=== PATIENT | male | born 1965 | race Caucasian/White ===

== ENCOUNTER 2024-10-16 23:30 | Emergency (ER) | payer OTHER ==
--- OUTSIDE RECORDS SUMMARY | 2024-10-16 23:36 | XMS REPORT | Continuity of Care Document ---
Author Name Unknown Address [address] [facility] [address] [place] [address] [facility] Address [address] [facility] [address] [place] [address] Care Team Providers Care Command Center Analyst Name Role Phone Abigail Yung Primary Care Physician Juan Mcwilliams Attending Clinician Juan Mora Attending Clinician CEASAR Shah Attending Clinician GERTRUDE Silva Attending Clinician CEASAR Dobbs Attending Clinician Sharon Cortés MD, Diandra Attending Clinician [phone] Huyen Sue MD, Cedrick Odom Attending Clinic chelsie Arsenio Braxton MD Attending Clinician [phone] Juan Mcwilliams Admitting Clinician CEASAR Shah Admitting Clinician Sharon Sanchez MD, Ceasar Terrell Admitting Clinician [phone] Payers Payer Name Policy Type Policy Number Effective Date Expirati on Date Source [facility] [id number] 2024 00:00:00 2024 00:00:00 [facility] 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 00:00:00 [employer] Other [id number] 2024 00:00:00 Problems Condition Name Condition Details Condition Category Status Onset Date Resolution Date Last Treatment Date Treating Clinician Comments Source Morbid obesity Morbid obesity Disease Recurre nce 2023-08 00:00: 00 Lela Chau BMI 40.0-44.9, adult BMI 40.0-44.9, adult Disease Active 2023-08 00:00: 00 Lela Chau HTN (hypertens ion) HTN (hypertens ion) Disease Active 2023-08 00:00: 00 Lela Chau Diabetes mellitus, type 2 Diabetes mellitus, type 2 Disease Active 2023-08 00:00: 00 Lela Chau Closed fracture of cervical vertebra, unspecifie d cervical vertebral level, initial encounter ([facility]) Closed fracture of cervical vertebra, unspecifie d cervical vertebral level, initial encounter ([facility]) Disease Resolve d 2023-08 00:00: 00 2024-08-07 00:00:00 2024-08-07 06:44:57 Lela Chau Allergies, Adverse Reactions, Alerts Allergy Name Allergy Type Status Severity Reaction(s) Onset Date Inactive Date Treating Clinician Comments Source Acetamin ophen Allergy to substanc e Active 08-22 00:00: 00 [facility] Clindamy michelle Allergy to substanc e Active 08-22 00:00: 00 [facility] Codeine Allergy to substanc e Active 08-22 00:00: 00 [facility] Diphenhy dramine Allergy to substanc e Active 08-22 00:00: 00 [facility] Sulfa Antibiot ics Propensi ty to adverse reaction s Active 2023-08 00:00: 00 [facility] Oxycodon e-Acetam inophen Propensi ty to adverse reaction s Active 2023-08 00:00: 00 [facility] Sulfa Antibiot ics Propensi ty to adverse reaction s Active 2023-08 00:00: 00 Lela Chau Cleocin HCl Drug Active [facility] Gantrisi n Pediatri c Drug Active [facility] Banophen Drug Active [facility] Tylenol Drug Active [facility] codeine Drug Active [facility] sulfa drugs Drug Active [facility] Cleocin HCl Drug Active [facility] Gantrisi n Pediatri c Drug Active [facility] Banophen Drug Active [facility] Tylenol Drug Active [facility] codeine Drug Active [facility] sulfa drugs Drug Active [facility] Cleocin HCl Drug Active [facility] Gantrisi n Pediatri c Drug Active [facility] Banophen Drug Active [facility] Tylenol Drug Active [facility] codeine Drug Active [facility] sulfa drugs Drug Active [facility] Cleocin HCl Drug Active [facility] Gantrisi n Pediatri c Drug Active [facility] Banophen Drug Active [facility] Tylenol Drug Active [facility] codeine Drug Active [facility] sulfa drugs Drug Active [facility] Cleocin HCl Drug Active [facility] Gantrisi n Pediatri c Drug Active [facility] Banophen Drug Active [facility] Tylenol Drug Active [facility] codeine Drug Active [facility] sulfa drugs Drug Active [facility] Cleocin HCl Drug Active [facility] Gantrisi n Pediatri c Drug Active [facility] Banophen Drug Active [facility] Tylenol Drug Active [facility] codeine Drug Active [facility] sulfa drugs Drug Active [facility] Cleocin HCl Drug Active [facility] Gantrisi n Pediatri c Drug Active [facility] Banophen Drug Active [facility] Tylenol Drug Active [facility] codeine Drug Active [facility] sulfa drugs Drug Active [facility] Cleocin HCl Drug Active [facility] Gantrisi n Pediatri c Drug Active [facility] Banophen Drug Active [facility] Tylenol Drug Active [facility] codeine Drug Active [facility] sulfa drugs Drug Active [facility] Cleocin HCl Drug Active [facility] Gantrisi n Pediatri c Drug Active [facility] Banophen Drug Active [facility] Tylenol Drug Active [facility] codeine Drug Active [facility] sulfa drugs Drug Active [facility] Cleocin HCl Drug Active [facility] Gantrisi n Pediatri c Drug Active [facility] Banophen Drug Active [facility] Tylenol Drug Active [facility] codeine Drug Active [facility] sulfa drugs Drug Active [facility] Cleocin HCl Drug Active [facility] Gantrisi n Pediatri c Drug Active [facility] Banophen Drug Active [facility] Tylenol Drug Active [facility] codeine Drug Active [facility] sulfa drugs Drug Active [facility] Cleocin HCl Drug Active [facility] Gantrisi n Pediatri c Drug Active [facility] Banophen Drug Active [facility] Tylenol Drug Active [facility] codeine Drug Active [facility] sulfa drugs Drug Active [facility] Cleocin HCl Drug Active [facility] Gantrisi n Pediatri c Drug Active [facility] Banophen Drug Active [facility] Tylenol Drug Active [facility] codeine Drug Active [facility] sulfa drugs Drug Active [facility] Cleocin HCl Drug Active [facility] Gantrisi n Pediatri c Drug Active [facility] Banophen Drug Active [facility] Tylenol Drug Active [facility] codeine Drug Active [facility] sulfa drugs Drug Active [facility] Cleocin HCl Drug Active [facility] Gantrisi n Pediatri c Drug Active [facility] Banophen Drug Active [facility] Tylenol Drug Active [facility] codeine Drug Active [facility] sulfa drugs Drug Active [facility] Cleocin HCl Drug Active [facility] Gantrisi n Pediatri c Drug Active [facility] Banophen Drug Active [facility] Tylenol Drug Active [facility] codeine Drug Active [facility] sulfa drugs Drug Active [facility] Cleocin HCl Drug Active [facility] Gantrisi n Pediatri c Drug Active [facility] Banophen Drug Active [facility] Tylenol Drug Active [facility] codeine Drug Active [facility] sulfa drugs Drug Active [facility] Cleocin HCl Drug Active [facility] Gantrisi n Pediatri c Drug Active [facility] Banophen Drug Active [facility] Tylenol Drug Active [facility] codeine Drug Active [facility] sulfa drugs Drug Active [facility] Cleocin HCl Drug Active [facility] Gantrisi n Pediatri c Drug Active [facility] Banophen Drug Active [facility] Tylenol Drug Active [facility] codeine Drug Active [facility] sulfa drugs Drug Active [facility] Cleocin HCl Drug Active [facility] Gantrisi n Pediatri c Drug Active [facility] Banophen Drug Active [facility] Tylenol Drug Active [facility] codeine Drug Active [facility] sulfa drugs Drug Active [facility] Cleocin HCl Drug Active [facility] Gantrisi n Pediatri c Drug Active [facility] Banophen Drug Active [facility] Tylenol Drug Active [facility] codeine Drug Active [facility] sulfa drugs Drug Active [facility] codeine Drug Active [facility] sulfa drugs Drug Active [facility] Cleocin HCl Drug Active [facility] Cleocin HCl Drug Active [facility] Gantrisi n Pediatri c Drug Active [facility] Banophen Drug Active [facility] Tylenol Drug Active [facility] Gantrisi n Pediatri c Drug Active [facility] Banophen Drug Active [facility] codeine Drug Active [facility] Tylenol Drug Active [facility] sulfa drugs Drug Active [facility] Cleocin HCl Drug Active [facility] Gantrisi n Pediatri c Drug Active [facility] Banophen Drug Active [facility] Tylenol Drug Active [facility] codeine Drug Active [facility] sulfa drugs Drug Active [facility] Cleocin HCl Drug Active [facility] Gantrisi n Pediatri c Drug Active [facility] Banophen Drug Active [facility] Tylenol Drug Active [facility] codeine Drug Active [facility] sulfa drugs Drug Active [facility] Social History Social Habit Start Date Stop Date Quantity Comments Source [facility] Sexual orientation U T [facility] History of Social function 2024-07-31 00:00:00 2024-07-31 00:00:00 [facility] Sex 2024-07-29 18:11:16 2024-07-29 18:11:16 Male (finding) [facility] Sex assigned at 1965 00:00:00 1965 00:00:00 M [facility] Smoking Status Start Date Stop Date Source Tobacco smoking consumption unknown [facility] Medications Ordered Medication Name Filled Medication Name Start Date Stop Date Current Medication? Ordering Clinician Indication Dosage Frequency Signature (SIG) Comments Components Source traMADol 100 MG tablet 08-22 00:00: 00 08-30 05:59 :00 Yes [id number] 100mg Q6H Take 1 tablet (100 mg total) by mouth every 6 (six) hours if needed for severe pain for up to 7 days. [facility] NIFEdipine XL (Procardia XL) 90 mg NIFEdipine XL (Procardia XL) 90 mg 2023-08 10:15: 00 Yes 90mg QD 90 mg, Oral, Daily, First dose on Wed08/07/24 at 1015, Do not crush, chew, or split. Lela Chau NIFEdipine XL (Procardia XL) 90 MG NIFEdipine XL (Procardia XL) 90 MG 2023-08 00:00: 00 08-07 23:59 :00 No 90mg QD Take 1 tablet by mouth 1 time each day. Do not crush, chew, or split. Lela Chau NIFEdipine XL (Procardia XL) 30 mg, NIFEdipine CC (Adalat CC) 60 mg NIFEdipine XL (Procardia XL) 30 mg, NIFEdipine CC (Adalat CC) 60 mg 2023-08 10:15: 00 08-07 10:11 :41 No 90mg QD 90 mg, Oral, Daily, First dose on Wed08/06/24 at 1015, Do not crush, chew, or split. Lela Chau DULoxetine (Cymbalta) [address] capsule DULoxetine (Cymbalta) [address] capsule 2023-08 00:00: 00 09-04 23:59 :00 Yes 60mg QD Take 1 capsule by mouth 1 time each day. Do not crush or chew. Lela Chau famotidine (Pepcid) tablet 20 mg famotidine (Pepcid) tablet 20 mg 2023-08 21:00: 00 Yes 20mg Q.5D 20 mg, Oral, Every 12 hours scheduled, First dose on Wed08/04/24 at 2100 Lela Chau enoxaparin (Lovenox) syringe 50 mg enoxaparin (Lovenox) syringe 50 mg 2023-08 21:00: 00 Yes 50mg Q12H 50 mg, Subcutaneo us, Every 12 hours, First dose (after last modificati on) on Wed08/04/24 at 2100 Lela Chau sodium chloride 0.9 % infusion sodium chloride 0.9 % infusion 2023-08 14:45: 00 08-06 11:00 :15 No 50mL/h 50 mL/hr, Intravenou s, Continuous , Starting on Wed08/04/24 at 1445 Lela Chau losartan (Cozaar) tablet 50 mg losartan (Cozaar) tablet 50 mg 2023-08 12:15: 00 Yes 50mg QD 50 mg, Oral, Daily, First dose on Wed08/04/24 at 1215 Lela Chau labetalol injection 20 mg labetalol injection 20 mg 2023-08 06:08: 18 Yes 20mg Q6H 20 mg, Intravenou s, Every 6 hours PRN, high blood pressure, goal sbp 100-160, Starting on Wed08/04/24 at 0608 Lela Chau gabapentin (Neurontin) 300 MG capsule 2023-08 00:00: 00 Yes 600mg Q.[id number] 3D Take 600 mg by mouth in the morning and 600 mg at noon and 600 mg in the evening. [facility] traMADol HCl 100 MG tablet 2023-08 00:00: 00 Yes TAKE ONE (1) TABLET(S) BY MOUTH EVERY EIGHT HOURS NEEDED FOR SEVERE PAIN ( 7-10 ) OR MODERATE PAIN ( 4-6 ). [facility] aspirin 325 MG EC tablet aspirin 325 MG EC tablet 2023-08 00:00: 00 10-03 23:59 :00 No 325mg QD Take 1 tablet by mouth 1 time each day. Lela Albarran [facility] methocarbam ol 1000 MG tablet methocarbam ol 1000 MG tablet 2023-08 00:00: 00 08-14 23:59 :00 Yes 1000mg Q6H Take 1,000 mg by mouth every 6 hours if needed for muscle spasms for up to 10 days. Lela Albarran [facility] senna-docus ate sodium (Senokot-S) 8.6-50 MG tablet senna-docus ate sodium (Senokot-S) 8.6-50 MG tablet 2023-08 00:00: 00 08-07 23:59 :00 No 1{tbl} Q.5D Take 1 tablet by mouth 2 times a day as needed for constipati on for up to 3 days. Lela Albarran [facility] potassium chloride CR (Klor-Con M20) ER tablet 20 mEq potassium chloride CR (Klor-Con M20) ER tablet 20 mEq 2023-08 10:30: 00 08-03 11:23 :00 No 20meq 20 mEq, Oral, Once, On Wed08/03/24 at 1030, For 1 dose, For patients able to take medication s orally or via feeding tube >/= 14 [place], may dissolve each 20 mEq tablet in 4 oz of water. Allow about 2 minutes for the tablets to disintegra te. Stir before giving to prepare slurry and administer . Please exclude patient's with feeding tube less than 14 [place] (Dobhoff, J-tube, etc) and pediatric and patients Do not crush or chew. Lela Chau potassium chloride CR (Klor-Con M20) ER tablet 40 mEq potassium chloride CR (Klor-Con M20) ER tablet 40 mEq 2023-08 06:45: 00 08-03 08:29 :00 No 40meq 40 mEq, Oral, Once, On Wed08/03/24 at 0645, For 1 dose, For patients able to take medication s orally or via feeding tube >/= 14 Filip[place], may dissolve each 20 mEq tablet in 4 oz of water. Allow about 2 minutes for the tablets to disintegra te. Stir before giving to prepare slurry and administer . Please exclude patient's with feeding tube less than 14 [place] (Dobhoff, J-tube, etc) and pediatric and patients Do not crush or chew. Lela Chau gabapentin (Neurontin) capsule 600 mg gabapentin (Neurontin) capsule 600 mg 2023-08 01:00: 00 Yes 600mg Q.[id number] 3D 600 mg, Oral, Every 8 hours scheduled, First dose on Wed08/03/24 at 0100 Lela Chau aspirin chewable tablet 324 mg aspirin chewable tablet 324 mg 2023-08 09:00: 00 Yes 324mg QD 324 mg, Oral, Daily, First dose (after last modificati on) on Wed08/02/24 at 0900 Lela Chau gabapentin (Neurontin) solution 600 mg gabapentin (Neurontin) solution 600 mg 2023-08 22:00: 00 08-03 00:57 :03 No 600mg Q.[id number] 3D 600 mg, Oral, Every 8 hours scheduled, First dose (after last modificati on) on Wed08/01/24 at 2200 Lela Chau sennosides (Senokot) tablet 8.6 mg sennosides (Senokot) tablet 8.6 mg 2023-08 21:00: 00 Yes 1{tbl} Q.5D 8.6 mg (1 tablet), Oral, Every 12 hours scheduled, First dose on Wed08/01/24 at 2100 Lela Chau polyethylen e glycol (PEG) 3350 (Miralax) packet 17 g polyethylen e glycol (PEG) 3350 (Miralax) packet 17 g 2023-08 21:00: 00 Yes 17g Q.5D 17 g, Oral, Every 12 hours scheduled, First dose (after last modificati on) on Wed08/01/24 at 2100, Dissolve 17 g in 120 to 240 mL (4 to 8 ounces) of beverage. Lela Chau Docusate Sodium oral liquid 100 mg Docusate Sodium oral liquid 100 mg 2023-08 21:00: 00 Yes 100mg Q.5D 100 mg, Oral, Every 12 hours scheduled, First dose (after last modificati on) on Wed08/01/24 at 2100, OK to hold if loose stool eLla Chau enoxaparin (Lovenox) syringe 50 mg enoxaparin (Lovenox) syringe 50 mg 2023-08 18:00: 00 08-04 13:25 :53 No 50mg Q12H 50 mg, Subcutaneo us, Every 12 hours, First dose (after last modificati on) on Wed08/01/24 at 1800 Lela Chau gabapentin (Neurontin) solution 600 mg gabapentin (Neurontin) solution 600 mg 2023-08 14:00: 00 08-01 19:54 :33 No 600mg Q.[id number] 3D 600 mg, Nasogastri c, Every 8 hours scheduled, First dose (after last modificati on) on Wed08/01/24 at 1400 Lela Chau Premier Protein Shake liquid 325 mL Premier Protein Shake liquid 325 mL 2023-08 12:00: 00 08-07 11:15 :53 No 1{bottl e} 325 mL (1 Bottle), Oral, 3 times daily with meals, First dose on Wed08/01/24 at 1200 Lela Chau acetaminoph en (Tylenol) tablet 1,000 mg acetaminoph en (Tylenol) tablet 1,000 mg 2023-08 10:00: 00 Yes 1000mg Q6H 1,000 mg, Oral, Every 6 hours, First dose (after last modificati on) on Wed08/01/24 at 1000, Max = 4 gm/day Lela Chau senna (Senokot) oral solution 5 mL senna (Senokot) oral solution 5 mL 2023-08 10:00: 00 08-01 19:55 :48 No 5mL Q.5D 5 mL, Per G Tube, Every 12 hours scheduled, First dose on Wed08/01/24 at 1000 Lela Chau methocarbam ol (Robaxin) tablet 1,000 mg methocarbam ol (Robaxin) tablet 1,000 mg 2023-08 09:00: 00 Yes 1000mg Q6H 1,000 mg, Oral, Every 6 hours, First dose (after last modificati on) on Wed08/01/24 at 0900 Lela Chau gabapentin (Neurontin) solution 300 mg gabapentin (Neurontin) solution 300 mg 2023-08 03:30: 00 08-01 10:52 :40 No 300mg Q.[id number] 3D 300 mg, Nasogastri c, Every 8 hours scheduled, First dose (after last modificati on) on Wed08/01/24 at 0330 Lela Chau ibuprofen tablet 200 mg ibuprofen tablet 200 mg 2023-08 18:46: 00 Yes 200mg Q6H 200 mg, Oral, Every 6 hours PRN, fever, fevers, Starting on Wed07/31/24 at 1846 Lela Chau enoxaparin (Lovenox) syringe 40 mg enoxaparin (Lovenox) syringe 40 mg 2023-08 18:00: 00 08-01 11:24 :15 No 40mg Q12H 40 mg, Subcutaneo us, Every 12 hours, First dose on Wed07/31/24 at 1800 Lela Chau methocarbam ol (Robaxin) tablet 500 mg methocarbam ol (Robaxin) tablet 500 mg 2023-08 16:44: 43 08-01 08:03 :20 No 500mg Q6H 500 mg, Oral, Every 6 hours PRN, muscle spasms, Starting on Wed07/31/24 at 1644 Lela Chau DULoxetine (Cymbalta) DR capsule 60 mg DULoxetine (Cymbalta) DR capsule 60 mg 2023-08 12:00: 00 Yes 60mg QD 60 mg, Oral, Daily, First dose on Wed07/31/24 at 1200, May open capsule and sprinkle contents on food Do not crush or chew. Lela Chau aspirin chewable tablet 324 mg aspirin chewable tablet 324 mg 2023-08 11:30: 00 08-01 19:53 :31 No 324mg QD 324 mg, Nasogastri c, Daily, First dose (after last modificati on) on Wed07/31/24 at 1130 Lela Chau Enteral Free water Flush 30 mL Enteral Free water Flush 30 mL 2023-08 11:15: 00 08-01 11:25 :12 No 30mL Q4H 30 mL, Nasogastri c, Every 4 hours, First dose on Wed07/31/24 at 1115 Lela Chau peptamen AF liquid peptamen AF liquid 2023-08 11:15: 00 08-01 11:25 :12 No Nasogastri c, at 85 mL/hr, Continuous , Starting on Wed07/31/24 at 1115, Administer enteral tube feeding as follows: Standard Progressio n: Initiate at 20 mL/hr and increase by 20 mL/hr evry 4 hours. Refer to the Rate field for Goal Rate Lela Chau bisacodyl (Dulcolax) suppository 10 mg bisacodyl (Dulcolax) suppository 10 mg 2023-08 09:00: 00 Yes 10mg QD 10 mg, Rectal, Daily, First dose on Wed07/31/24 at 0900 Lela Chau magnesium citrate oral solution 17.2173 g magnesium citrate oral solution 17.2173 g 2023-08 03:30: 00 07-31 04:00 :00 No 296mL 17.2173 g (296 mL), Oral, Once, On Wed07/31/24 at 0330, For 1 dose, Follow dose with 8 oz of water for patients >/= 2 years of age Lela Chau ceFAZolin Sodium (Ancef) 2 g in sterile water injection ceFAZolin Sodium (Ancef) 2 g in sterile water injection 2023-08 22:30: 00 07-31 14:46 :00 No 2g Q8H 2 g, Intravenou s, at 200 mL/hr, Administer over 6 Minutes, Every 8 hours, First dose on Wed07/30/24 at 2230, For 1 day, Recovery & On Unit, Suspected Indication (Select all that apply): Surgical Prophylaxi s Lela Chau famotidine (PF) (Pepcid) injection 20 mg famotidine (PF) (Pepcid) injection 20 mg 2023-08 21:00: 00 08-04 14:25 :28 No 20mg Q.5D 20 mg, Intravenou s, Administer over 2 Minutes, Every 12 hours scheduled, First dose on Wed07/30/24 at 2100 Lela Chau polyethylen e glycol (PEG) 3350 (Miralax) packet 17 g polyethylen e glycol (PEG) 3350 (Miralax) packet 17 g 2023-08 21:00: 00 08-01 19:55 :04 No 17g Q.5D 17 g, Per G Tube, Every 12 hours scheduled, First dose on Wed07/30/24 at 2100, Dissolve 17 g in 120 to 240 mL (4 to 8 ounces) of beverage. Lela Chau Docusate Sodium oral liquid 100 mg Docusate Sodium oral liquid 100 mg 2023-08 21:00: 00 08-01 19:53 :58 No 100mg Q.5D 100 mg, Per G Tube, Every 12 hours scheduled, First dose on Wed07/30/24 at 2100, OK to hold if loose stool Lela Chau iohexol (OMNIPaque) 350 MG/ML injection 100 mL iohexol (OMNIPaque) 350 MG/ML injection 100 mL 2023-08 20:13: 49 07-30 20:14 :00 No 100mL 100 mL, Intravenou s, Once in imaging, Starting on Wed07/30/24 at 2013, For 1 dose Lela Chau glucagon injection 1 mg glucagon injection 1 mg 2023-08 19:29: 21 Yes 1mg 1 mg, Intramuscu lar, As needed, For BG < 70 mg/dL if no IV access and patient is either Unconsciou s, unable to swallow or npo, Starting on Wed07/30/24 at 1929, For BG < 70 mg/dL if no IV access and patient is either Unconsciou s, unable to swallow or npo and notify MD. Lela Chau dextrose 50 % solution 25 g dextrose 50 % solution 25 g 2023-08 19:29: 21 Yes 25g 25 g, Intravenou s, As needed, other, if Blood Glucose </= 50 mg/dL, Starting on Wed07/30/24 at 1929, If BG </=50 mg/dL, give 50 mL of D50W IV push STAT and notify MD. Lela Chau dextrose 50 % solution 12.5 g dextrose 50 % solution 12.5 g 2023-08 19:29: 21 Yes 12.5g 12.5 g, Intravenou s, As needed, low blood sugar, if Blood Glucose 51- 69 mg/dL, Starting on Wed07/30/24 at 1929, For BG 51-69 mg/dL and patient UNCONSCIOU S OR UNABLE TO SWALLOW OR NPO: Give 25 mL of D50W IV push and notify MD. Lela Chau insulin lispro (HumaLOG, Admelog) injection 3-12 Units [id number] 8298-1 2-15 19:29: 21 Yes 3U 3-12 Units, Subcutaneo us, As needed, high blood sugar, Starting on Wed07/30/24 at 1929, 1. IF 2 consecutiv e BG are >160 mg/dL, notify provider. 2. IF 2 consecutiv e BG are < 110 mg/dL, notify provider. 3. IF 2 consecutiv e BG are >200 mg/dL or 1 BG is > or = to 300 mg/dL, notify provider then INITIATE Insulin drip 4. When initiating the Insulin Infusion Orders for ICU MPP, please discontinu e the ICU insulin Sub Q correction dose MPP and any orders for basal SQ insulin. Select the order communicat ion type as secondary. 5. When transferri ng out of ICU please inform MD to discontinu e critical care Sub-Q orders and initiate floor Sub-Q orders, Correction Insulin Dosing: (DO NOT CHANGE DEFAULT SELECTION/ VALUES): Medium, BG < 70 instructio ns: Follow Hypoglycem ia Orders, BG 70-149 instructio ns: No Dose Needed, BG 150-199: 3, BG 200-249: 6, BG 250-299: 9, BG >/= 300: 12, BG > 300 instructio ns: Contact Provider Lela Chau fentaNYL Citrate (Sublimaze) 1000 MCG/20ML infusion fentaNYL Citrate (Sublimaze) 1000 MCG/20ML infusion 2023-08 19:00: 00 08-01 03:28 :29 No 50ug/h 50-200 mcg/hr (1-4 mL/hr), Intravenou s, Continuous , Starting on Wed07/30/24 at 1900, If ordered with a ranged dose, initiate at lowest dose in ordered range. Titrate by 25 mcg/hr every 30 minutes to identified goal pain scores. Do not exceed max dose in ordered range; contact prescriber if goal not met or maintained at max dose., Goal Pain Score: Other, Other Goal Pain Score: Refer to RASS Score on the storyboard Lela Chau propofol (Diprivan) 10 mg/mL infusion [id number] 2023-08 18:45: 00 08-01 03:28 :24 No 5ug/kg/ min 5-50 mcg/kg/min ?136 kg (4.08-40.8 mL/hr), Intravenou s, Continuous , Starting on Wed07/30/24 at 1845, Infusion Type: Titrate, Initial Dose (mcg/kg/mi n): 5, Titrate by (mcg/kg/mi n): 5, Every (minutes): 15, Goal: Refer to Target Arousal RASS Score on Storyboard , Max Dose (mcg/kg/mi n): 50 Lela Chau artificial tears ophthalmic ointment 1 Application artificial tears ophthalmic ointment 1 Application 2023-08 18:45: 00 08-01 10:24 :56 No 1{appli cation} Q.25D 1 Applicatio n, Both Eyes, Every 6 hours scheduled, First dose on Wed07/30/24 at 1845, Discontinu e once extubated Lela Chau chlorhexidi ne (Peridex) 0.12 % solution 15 mL chlorhexidi ne (Peridex) 0.12 % solution 15 mL 2023-08 18:45: 00 08-01 10:24 :56 No 15mL Q.25D 15 mL, Mouth/Thro at, 4 times daily, First dose on Wed07/30/24 at 1845, swish and expectorat e Lela Chau bisacodyl (Dulcolax) suppository 10 mg bisacodyl (Dulcolax) suppository 10 mg 2023-08 18:41: 38 Yes 10mg Q24H 10 mg, Rectal, Daily PRN, constipati on, Starting on Wed07/30/24 at 1841 Lela Chau chlorhexidi ne (Peridex) 0.12 % solution 15 mL chlorhexidi ne (Peridex) 0.12 % solution 15 mL 2023-08 18:28: 22 Yes 15mL 15 mL, Mouth/Thro at, As needed, wound care, For VAP prevention and oral hygiene., Starting on Wed07/30/24 at 1828, swish and expectorat e Lela Albarran Epic sodium chloride (NS) 0.9 % flush 10 mL sodium chloride (NS) 0.9 % flush 10 mL 2023-08 09:00: 00 Yes 10mL Q.5D 10 mL, Intravenou s, Every 12 hours scheduled, First dose on Wed07/30/24 at 0900, Administer at least once every 12 hours Lela Chau oxyCODONE (Roxicodone ) immediate release tablet 5 mg oxyCODONE (Roxicodone ) immediate release tablet 5 mg 2023-08 04:44: 46 Yes 5mg Q6H 5 mg, Oral, Every 6 hours PRN, moderate pain (4-6), Starting on Wed07/30/24 at 0444 Lela Albarran Epic morphine PF injection 2 mg morphine PF injection 2 mg 2023-08 04:43: 26 Yes 2mg Q4H 2 mg, Intravenou s, Every 4 hours PRN, severe pain (7-10), Starting on Wed07/30/24 at 0443 Lela Albarran Epic acetaminoph en (Tylenol) tablet 650 mg acetaminoph en (Tylenol) tablet 650 mg 2023-08 04:43: 26 08-01 08:03 :20 No 650mg Q6H 650 mg, Oral, Every 6 hours PRN, mild pain (1-3), Starting on Wed07/30/24 at 0443 Lela Albarran Epic sodium chloride (NS) 0.9 % flush 10 mL sodium chloride (NS) 0.9 % flush 10 mL 2023-08 04:37: 53 Yes 10mL 10 mL, Intravenou s, As needed, line care, Line Flush, Starting on Wed07/30/24 at 0437 Lela Albarran Epic morphine PF injection 4 mg morphine PF injection 4 mg 2023-08 02:15: 00 07-30 02:20 :00 No 4mg 4 mg, Intravenou s, Once, On Wed07/30/24 at 0215, For 1 dose, Administer IVP. Lela Albarran Epic morphine PF injection 4 mg morphine PF injection 4 mg 2023-08 00:15: 00 07-30 00:13 :00 No 4mg 4 mg, Intravenou s, Once, On Wed07/30/24 at 0015, For 1 dose, Administer IVP. Lela Albarran Epic morphine PF injection 4 mg morphine PF injection 4 mg 2023-08 23:15: 00 07-29 23:20 :00 No 4mg 4 mg, Intravenou s, Once, On 07/29/24 at 2315, For 1 dose Lela Albarran Epic morphine PF injection 4 mg morphine PF injection 4 mg 2023-08 20:35: 00 07-29 20:43 :00 No 4mg 4 mg, Intravenou s, Once, On 07/29/24 at 2035, For 1 dose Lela Albarran Epic iohexol (OMNIPaque) 350 MG/ML injection 100 mL iohexol (OMNIPaque) 350 MG/ML injection 100 mL 2023-08 20:26: 48 07-29 20:28 :00 No 100mL 100 mL, Intravenou s, Once in imaging, Starting on 07/29/24 at 2025, For 1 dose Lela Albarran Epic ondansetron (Zofran) injection 4 mg ondansetron (Zofran) injection 4 mg 2023-08 19:35: 00 07-29 19:35 :00 No 4mg 4 mg, Intravenou s, Once, On 07/29/24 at 1935, For 1 dose Lela Chau morphine PF injection 4 mg morphine PF injection 4 mg 2023-08 19:35: 00 07-29 19:35 :00 No 4mg 4 mg, Intravenou s, Once, On 07/29/24 at 1935, For 1 dose Lela Chau NIFEdipine CC (Adalat CC) 90 MG 24 hr tablet 2023-08 00:00: 00 Yes 90mg QD Take 90 mg by mouth 1 (one) time each day. [facility] losartan-hy droCHLOROth iazide (Hyzaar) 100-25 MG tablet 2023-08 00:00: 00 Yes 1{tbl} QD Take 1 tablet by mouth 1 (one) time each day. [facility] cloNIDine (Catapres) 0.1 MG tablet 2023-08 00:00: 00 Yes .1mg Q.5D Take 0.1 mg by mouth in the morning and 0.1 mg in the evening. [facility] Ozempic, 2 MG/DOSE, 8 MG/3ML solution pen-injecto r 2023-08 00:00: 00 Yes INJECT TWO (2) MG INTO THE SKIN ONCE WEEKLY. [facility] Vital Signs Vital Name Observation Time Observation Value Comments S destinee Height/Length Measured 2019-11-02 21:14:25 Height/Length Measured 2021-09-02 09:42:29 177.8 cm Weight Dosing 2021-09-02 09:42:29 130.30 kg Height/Length Measured 2021-09-02 09:42:11 177.8 cm Weight Dosing 2021-09-02 09:42:11 130.30 kg Height/Length Measured 2021-09-02 09:42:09 177.8 cm Weight Dosing 2021-09-02 09:42:09 130.30 kg Height/Length Measured 2021-09-02 09:41:04 177.8 cm Weight Dosing 2021-09-02 09:41:04 130.30 kg Height/Length Measured 2021-09-02 09:39:39 177.8 cm Weight Dosing 2021-09-02 09:39:39 130.30 kg Height/Length Measured 2021-09-02 09:39:32 177.8 cm Weight Dosing 2021-09-02 09:39:32 130.30 kg Height/Length Measured 2021-09-02 09:39:28 177.8 cm Weight Dosing 2021-09-02 09:39:28 130.30 kg Height/Length Measured 2021-09-02 09:39:26 177.8 cm Weight Dosing 2021-09-02 09:39:26 130.30 kg Height/Length Measured 2021-09-02 09:39:16 177.8 cm Weight Dosing 2021-09-02 09:39:16 130.30 kg Height/Length Measured 2021-09-02 09:38:56 177.8 cm Weight Dosing 2021-09-02 09:38:56 130.30 kg Height/Length Measured 2021-09-02 09:38:49 177.8 cm Weight Dosing 2021-09-02 09:38:49 130.30 kg Systolic blood pressure 2024-08-22 17:32:00 113 mm[Hg] [facility] Diastolic blood pressure 2024-08-22 17:32:00 77 mm[Hg] [facility] Heart rate 2024-08-22 17:32:00 59 /min [facility] Systolic blood pressure 2024-08-07 16:15:00 138 mm[Hg] [facility] Diastolic blood pressure 2024-08-07 16:15:00 72 mm[Hg] [facility] Heart rate 2024-08-07 16:15:00 66 /min [facility] Body temperature 2024-08-07 16:15:00 36.39 [facility] Respiratory rate 2024-08-07 16:15:00 18 /min [facility] Oxygen saturation in Arterial blood by Pulse oximetry 2024-08-07 16:15:00 95 /min [facility] Body height 2024-07-29 18:25:00 180.3 cm [facility] Body weight 2024-07-29 18:25:00 136.079 kg Pk [facility] BMI 2024-07-29 18:25:00 41.84 kg/m2 Pk [facility] Systolic blood pressure 2024-08-07 16:15:00 138 mm[Hg] [facility] Diastolic blood pressure 2024-08-07 16:15:00 72 mm[Hg] [facility] Heart rate 2024-08-07 16:15:00 66 /min Memor ial [facility] Body temperature 2024-08-07 16:15:00 36.39 [facility] Respiratory rate 2024-08-07 16:15:00 18 /min [facility] Oxygen saturation in Arterial blood by Pulse oximetry 2024-08-07 16:15:00 95 /min [facility] Body height 2024-07-29 18:25:00 180.3 [facility] Body weight 2024-07-29 18:25:00 136.079 kg Pk [facility] BMI 2024-07-29 18:25:00 41.84 kg/m2 Pk rial Deion Epic Procedures Procedure Date / Time Performed Performing Clinician Source CT cervical spine wo IV contrast 2024-09-21 00:00:00 [facility] POCT Glucose 2024-08-29 00:00:00 [facility] Basic Metabolic Panel 2024-08-27 00:00:00 [facility] Calcium Level Ionized Whole Blood 2024-08-27 00:00:00 [facility] Complete Blood Count w/Diff and Platelet 2024-08-27 00:00:00 [facility] Phosphorus Level 2024-08-25 00:00:00 Pk rial [facility] Magnesium Level 2024-08-25 00:00:00 Memor ial [facility] POC GLUCOSE UNSOLICITED RESULTS 2024-08-07 13:00:00 Ceasar Sanchez [facility] COMPLETE BLOOD COUNT 2024-08-07 03:47:00 [facility] 2024-08-07 03:47:00 [facility] BASIC METABOLIC PANEL 2024-08-07 03:47:00 [facility] MAGNESIUM LEVEL 2024-08-07 03:47:00 Salvatore [facility] PHOSPHORUS LEVEL 2024-08-07 03:47:00 Nile [facility] COMPLETE BLOOD COUNT W/DIFF AND PLATELET 2024-08-07 03:47:00 Winnie Sandoval [facility] CALCIUM LEVEL IONIZED WHOLE BLOOD 2024-08-07 03:47:00 Winnie Sandoval [facility] POC GLUCOSE UNSOLICITED RESULTS 2024-08-06 21:19:00 Ceasar Sanchez [facility] ANTI-XA LOW MOLECULAR WEIGHT HEPARIN 2024-08-06 13:44:00 Lora Capps [facility] POC GLUCOSE UNSOLICITED RESULTS 2024-08-06 12:34:00 Ceasar Sanchez [facility] COMPLETE BLOOD COUNT 2024-08-06 03:24:00 St jani Sandoval [facility] AUTOMATED DIFFERENTIAL 2024-08-06 03:24:00 Winnie Sandoval [facility] BASIC METABOLIC PANEL 2024-08-06 03:24:00 Lexi [facility] COMPLETE BLOOD COUNT W/DIFF AND PLATELET 2024-08-06 03:24:00 [facility] CALCIUM LEVEL IONIZED WHOLE BLOOD 2024-08-06 03:24:00 Winnie [facility] POC GLUCOSE UNSOLICITED RESULTS 2024-08-06 03:18:00 Ceasar Sanchez [facility] ANTI-XA LOW MOLECULAR WEIGHT HEPARIN 2024-08-05 14:59:00 Génesis Lora Jose Carlos [facility] COMPLETE BLOOD COUNT 2024-08-05 04:23:00 St jani [facility] AUTOMATED DIFFERENTIAL 2024-08-05 04:23:00 Winnie [facility] BASIC METABOLIC PANEL 2024-08-05 04:23:00 Lexi [facility] COMPLETE BLOOD COUNT W/DIFF AND PLATELET 2024-08-05 04:23:00 Winnie [facility] ANTI-XA LOW MOLECULAR WEIGHT HEPARIN 2024-08-05 04:23:00 Siobhan Neves [facility] CALCIUM LEVEL IONIZED WHOLE BLOOD 2024-08-05 04:23:00 [facility] POC GLUCOSE UNSOLICITED RESULTS 2024-08-04 16:38:00 Ceasar Sanchez [facility] POC GLUCOSE UNSOLICITED RESULTS 2024-08-04 09:20:00 Ceasar Sanchez [facility] COMPLETE BLOOD COUNT 2024-08-04 01:11:00 St Lori jani [facility] AUTOMATED DIFFERENTIAL 2024-08-04 01:11:00 Winnie [facility] BASIC METABOLIC PANEL 2024-08-04 01:11:00 Lexi [facility] MAGNESIUM LEVEL 2024-08-04 01:11:00 Salvatore [facility] PHOSPHORUS LEVEL 2024-08-04 01:11:00 Nile [facility] COMPLETE BLOOD COUNT W/DIFF AND PLATELET 2024-08-04 01:11:00 Winnie [facility] CALCIUM LEVEL IONIZED WHOLE BLOOD 2024-08-04 01:11:00 Winnie [facility] POC GLUCOSE UNSOLICITED RESULTS 2024-08-04 01:09:00 Ceasar Sanchez [facility] POC GLUCOSE UNSOLICITED RESULTS 2024-08-03 20:34:00 Ceasar Sanchez [facility] POC GLUCOSE UNSOLICITED RESULTS 2024-08-03 17:23:00 Ceasar Sanchez [facility] COMPLETE BLOOD COUNT 2024-08-03 00:03:00 St jani [facility] AUTOMATED DIFFERENTIAL 2024-08-03 00:03:00 Winnie [facility] BASIC METABOLIC PANEL 2024-08-03 00:03:00 Lexi [facility] COMPLETE BLOOD COUNT W/DIFF AND PLATELET 2024-08-03 00:03:00 [facility] CALCIUM LEVEL IONIZED WHOLE BLOOD 2024-08-03 00:03:00 [facility] POC GLUCOSE UNSOLICITED RESULTS 2024-08-02 17:34:00 ElaineCeasar brooks [facility] POC GLUCOSE UNSOLICITED RESULTS 2024-08-02 07:44:00 Ceasar Sanchez [facility] POC GLUCOSE UNSOLICITED RESULTS 2024-08-02 04:17:00 Ceasar Sanchez [facility] POC GLUCOSE UNSOLICITED RESULTS 2024-08-02 00:19:00 Ceasar Sanchez [facility] MAGNESIUM LEVEL 2024-08-02 00:18:00 Salvatore [facility] PHOSPHORUS LEVEL 2024-08-02 00:18:00 Nile [facility] COMPLETE BLOOD COUNT W/DIFF AND PLATELET 2024-08-02 00:18:00 Winnie [facility] CALCIUM LEVEL IONIZED WHOLE BLOOD 2024-08-02 00:18:00 Lori Winnie [facility] COMPLETE BLOOD COUNT 2024-08-02 00:18:[address] jani [facility] AUTOMATED DIFFERENTIAL 2024-08-02 00:18:00 Winnie [facility]adio [facility] BASIC METABOLIC PANEL 2024-08-02 00:18:00 Lexi [facility] POC GLUCOSE UNSOLICITED RESULTS 2024-08-01 20:12:00 Ceasar Sanchez [facility] 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 FEES PROCEDURE 2024-08-01 10:12:00 Anastasia Sanchez [facility] ANTI-XA LOW MOLECULAR WEIGHT HEPARIN 2024-08-01 10:01:00 Bryson Burton [facility] POC GLUCOSE UNSOLICITED RESULTS 2024-08-01 08:07:00 Ceasar Sanchez [facility] XR CHEST 1 VIEW 2024-08-01 07:41:00 Sanya Gong [facility] POC GLUCOSE UNSOLICITED RESULTS 2024-08-01 04:11:00 Ceasar Sanchez [facility] POC GLUCOSE UNSOLICITED RESULTS 2024-08-01 00:11:00 Ceasar Sanchez [facility] COMPLETE BLOOD COUNT 2024-08-01 00:03:00 St Lori jani [facility] AUTOMATED DIFFERENTIAL 2024-08-01 00:03:00 Winnie [facility] BASIC METABOLIC PANEL 2024-08-01 00:03:00 Lexi [facility] COMPLETE BLOOD COUNT W/DIFF AND PLATELET 2024-08-01 00:03:00 [facility] CALCIUM LEVEL IONIZED WHOLE BLOOD 2024-08-01 00:03:00 Winnie [facility] POC GLUCOSE UNSOLICITED RESULTS 2024-07-31 20:30:00 Ceasar Sanchez [facility] POC GLUCOSE UNSOLICITED RESULTS 2024-07-31 16:44:00 Ceasar Sanchez [facility] POC GLUCOSE UNSOLICITED RESULTS 2024-07-31 12:26:00 Elaine, Ceasar SoteloBob [facility] EXTUBATION 2024-07-31 11:17:16 Kady Hernández [facility] EXTUBATION 2024-07-31 11:17:00 Collette Lincoln Memo rial [facility] POC GLUCOSE UNSOLICITED RESULTS 2024-07-31 08:30:00 Elaine, Ceasar Xander [facility] XR HUMERUS 2 VIEWS LEFT 2024-07-31 06:09:49 Cuev as, [facility] XR SHOULDER 2+ VIEWS LEFT 2024-07-31 06:09:23 Cu evas, [facility] XR SHOULDER 2+ VIEWS RIGHT 2024-07-31 06:08:00 C uevas, [facility] XR HUMERUS 2 VIEWS RIGHT 2024-07-31 06:08:00 Cue vas, [facility] POC ARTERIAL BLOOD GAS PANEL UNSOLICITED RESULTS 2024-07-31 01:03:00 Elaine Ceasar Xander [facility] POC GLUCOSE UNSOLICITED RESULTS 2024-07-31 01:02:00 Ceasar Sanchez DavidCapps [facility] TROPONIN I HIGH SENSITIVITY (SINGLE ORDER) 2024-07-31 00:52:00 Winnie Sandoval [facility] COMPLETE BLOOD COUNT 2024-07-31 00:52:00 Emile Mack [facility] AUTOMATED DIFFERENTIAL 2024-07-31 00:52:00 Cyn Mack [facility] COMPREHENSIVE METABOLIC PANEL 2024-07-31 00:52:00 [facility] MAGNESIUM LEVEL 2024-07-31 00:52:00 Salvatore [facility] PHOSPHORUS LEVEL 2024-07-31 00:52:00 Nile [facility] COMPLETE BLOOD COUNT W/DIFF AND PLATELET 2024-07-31 00:52:00 Emile Mack [facility] CALCIUM LEVEL IONIZED WHOLE BLOOD 2024-07-31 00:52:00 Lori, Winnie [facility] XR ABDOMEN 1 VIEW 2024-07-30 23:55:00 Andre Sanchez [facility] CT ANGIOGRAM BRAIN NECK 2024-07-30 20:12:54 Bindal, Johnson valadez [facility] CT CERVICAL SPINE WO IV CONTRAST 2024-07-30 20:12:54 Winnie [facility] XR ABDOMEN 1 VIEW 2024-07-30 18:59:00 Ashley [facility] XR CHEST 1 VIEW 2024-07-30 18:44:00 Zulay Davies [facility] PT AND PTT 2024-07-30 18:31:00 Bindal, Elizabeth [facility] COMPLETE BLOOD COUNT 2024-07-30 18:31:00 Bindal, Shiva ni [facility] AUTOMATED DIFFERENTIAL 2024-07-30 18:31:00 Bindal, Cristina hilda [facility] BASIC METABOLIC PANEL 2024-07-30 18:31:00 Bindal, Shiv ani [facility] COMPLETE BLOOD COUNT W/DIFF AND PLATELET 2024-07-30 18:31:00 Bindal, Elizabeth [facility] POC ARTERIAL BLOOD GAS AND BASIC PANEL UNSOLICITED RESULTS 2024-07-30 16:56:00 Ceasar Sanchez [facility] FL 1 HOUR INTRAOPERATIVE 2024-07-30 16:54:00 Ceasar Chou [facility] POC ARTERIAL BLOOD GAS AND BASIC PANEL UNSOLICITED RESULTS 2024-07-30 15:27:00 Ceasar Sanchez [facility] POC ARTERIAL BLOOD GAS AND BASIC PANEL UNSOLICITED RESULTS 2024-07-30 13:35:00 Ceasar Sanchez [facility] POC ARTERIAL BLOOD GAS AND BASIC PANEL UNSOLICITED RESULTS 2024-07-30 08:52:00 Diandra Cortés [facility] MI LAMOPLASTY CERVICAL DCMPRN CORD 2/> SEG RCNSTJ 2024-07-30 07:49:00 Ceasar Sanchez [facility] LACTIC ACID WITH 2 HOUR REFLEX 2024-07-30 03:18:00 [facility]ACH[facility] PLEXUS RIGHT WO IV CONTRAST 2024-07-30 03:17:00 Emile Mack [facility] MRI CERVICAL SPINE WO IV CONTRAST 2024-07-30 01:56:00 [facility] 2024-07-30 00:00:45 [facility] Blood Gas, Arterial 2024-07-30 00:00:00 M [facility] UA WITH MICROSCOPIC NO CULTURE 2024-07-29 23:38:00 Afua Tryalor [facility] DRUG SCREEN URINE (8 DRUGS) 2024-07-29 23:38:00 Afua Traylor [facility] CT CHEST ABDOMEN PELVIS W IV CONTRAST 2024-07-29 20:30:00 Afua Traylor [facility] CT BRAIN WO IV CONTRAST 2024-07-29 20:30:00 Afua Moore [facility] CT ANGIOGRAM NECK 2024-07-29 20:30:00 Afua Traylor [facility] CT CERVICAL SPINE WO IV CONTRAST 2024-07-29 20:30:00 Afua Traylor [facility] ECG 12-LEAD 2024-07-29 18:48:29 David Traylor [facility] THROMBOELASTOGRAPH RAPID 2024-07-29 18:38:00 Afua Chao [facility] LACTIC ACID WITH 2 HOUR REFLEX 2024-07-29 18:38:00 Afua Traylor [facility] PT AND PTT 2024-07-29 18:38:00 Emile Mack [facility] COMPLETE BLOOD COUNT 2024-07-29 18:38:00 Afua Toribio [facility] AUTOMATED DIFFERENTIAL 2024-07-29 18:38:00 Afua Mayer [facility] BASIC METABOLIC PANEL 2024-07-29 18:38:00 Afua Milner [facility] ETHANOL LEVEL 2024-07-29 18:38:00 David Traylor [facility] CREATINE KINASE (CK TOTAL) 2024-07-29 18:38:00 S Afua herrera [facility] BLOOD GAS, VENOUS 2024-07-29 18:38:00 Kymberly Afua [facility] TYPE AND SCREEN 2024-07-29 18:38:00 David Traylorely [facility] COMPLETE BLOOD COUNT W/DIFF AND PLATELET 2024-07-29 18:38:00 TraylorAfua [facility] Encounters Start Date/Time End Date/Time Encounter Type Admission Type Attending [facility] Care Facility Care Department Encounter ID Source 2019-11-02 20:57:00 Inpatient 2 Juan Mcwilliams Younan [facility] IS[facility]LL [id number] [facility] 2019-11-02 20:39:00 Inpatient 2 uJan Mcwilliams Younan [facility] MED [id number] [facility] 2024-10-31 10:20:00 2024-10-31 10:20:00 Outpatient ELAINECEASAR [facility] [id number] [facility] 2024-09-21 00:00:00 2024-09-21 17:01:06 Orders Only Elaine Ceasar [facility] [id number] Lela manzo [facility] 2024-09-19 12:00:00 2024-09-19 12:00:00 Outpatient ELAINE CEASAR [facility] [id number] [facility] 2024-08-22 10:20:00 2024-08-23 16:32:46 Office Visit [facility] 2 [id number] [facility] 2024-07-29 18:23:00 2024-08-07 17:55:00 Inpatient Trauma Center ELAINECEASAR [facility] General Medicine [id number] [facility] 2024-07-29 18:23:00 2024-08-07 17:55:00 Hospital Encounter Diandra Cortés Linette, Cedrick Sanchez, Arsenio Naqvi [facility] [id number] Lela manzo [facility] 2019-11-02 18:43:00 2019-11-02 18:43:00 Emergency [facility] KAMILA [id number] [facility] Results Test Description Test Time Test Comments Results Result Co mments Source [facility] [id number] 21:38:56* Test Item Value Reference Range Interpretation Comme nts POC Glu (test code = 2743127943) 144 mg/dL 70-99 H POC Performing Location (manpreet t code = 0803733664) [facility] Lab Interpretation (test cod e = 81466-5) Abnormal [facility] [id number] 12:44:12* Test Item Value Reference Range Interpretation Comme nts POC Glu (test code = 4169168336) 127 mg/dL 70-99 H POC Performing Location (manpreet t code = 0420919323) [facility] Lab Interpretation (test cod e = 25874-5) Abnormal [facility] [id number] 03:40:44* Test Item Value Reference Range Interpretation Comme nts POC Glu (test code = 5830736868) 150 mg/dL 70-99 H POC Performing Location (manpreet t code = 6738838171) [facility] Lab Interpretation (test cod e = 97712-1) Abnormal [facility] [id number] 17:59:22* Test Item Value Reference Range Interpretation Comme nts POC Glu (test code = 7326156836) 128 mg/dL 70-99 H POC Performing Location (manpreet t code = 5245303801) [facility]5 NE[facility]O Lab Interpretation (test cod e = 07430-0) Abnormal [facility] [id number] 09:40:53* Test Item Value Reference Range Interpretation Comme nts POC Glu (test code = 1817168648) 137 mg/dL 70-99 H POC Performing Location (manpreet t code = 1746665272) J4 [facility] Lab Interpretation (test cod e = 44962-8) Abnormal [facility] [id number] 01:14:47* Test Item Value Reference Range Interpretation Comme nts POC Glu (test code = 1555416779) 122 mg/dL 70-99 H POC Performing Location (manpreet t code = 5265819160) J4 [facility] Lab Interpretation (test cod e = 92907-4) Abnormal [facility]2024-12-19 20:40:40* Test Item Value Reference Range Interpretation Comme nts POC Glu (test code = 5526153247) 127 mg/dL 70-99 H POC Performing Location (manpreet t code = 3090887494) [facility] Lab Interpretation (test cod e = 88490-5) Abnormal [place] [address] xgsj5763-04-34 17:30:23* Test Item Value Reference Range Interpretation Comme nts Ventricular Rate (test code = 8146970553) BPM Atrial Rate (test code = 3728705968) BPM MI Interval (test code = 2886700244) 184 ms QRS Duration (test code = 7217600138) 106 ms QT/QTc (test code = 3677853833) 406 ms QTc Calculation (test code = 0039591934) 429 ms P-Senoia (test code = 7535897203) degrees R-Senoia (test code = 8921062520) degrees T-Senoia (test code = 9608803257) degrees IMP (test code = IMP) PXN (test code = PXN) [facility]2024-12-19 17:29:55* Test Item Value Reference Range Interpretation Comme nts POC Glu (test code = 0545319771) 133 mg/dL 70-99 H POC Glu Comment 1 (test code = 8629925620) Notified RN/MD POC Performing Location (manpreet t code = 4969406382) [facility] Lab Interpretation (test cod e = 83294-7) Abnormal [facility] Enownbj7452-23-57 17:41:07* Test Item Value Reference Range Interpretation Comme nts POC Glu (test code = 9229396615) 126 mg/dL 70-99 H POC Glu Comment 1 (test code = 7158704517) Notified RN/MD POC Performing Location (manpreet t code = 3002704042) [facility] Lab Interpretation (test cod e = 90766-3) Abnormal [facility] Grkqjyf4587-86-79 07:49:13* Test Item Value Reference Range Interpretation Comme nts POC Glu (test code = 6400532194) 149 mg/dL 70-99 H POC Performing Location (manpreet t code = 3299365681) NSICU Lab Interpretation (test cod e = 22540-4) Abnormal [facility] Vfoabdu8997-29-53 05:26:46* Test Item Value Reference Range Interpretation Comme nts POC Glu (test code = 6731271564) 140 mg/dL 70-99 H POC Glu Comment 1 (test code = 6183562361) Cleaned Meter POC Performing Location (manpreet t code = 1108434741) NSICU Lab Interpretation (test cod e = 62155-4) Abnormal [facility] Vznfgdb7600-94-15 00:23:37* Test Item Value Reference Range Interpretation Comme nts POC Glu (test code = 2936027426) 121 mg/dL 70-99 H POC Glu Comment 1 (test code = 6132539911) Cleaned Meter POC Performing Location (manpreet t code = 2606008828) NSICU Lab Interpretation (test cod e = 93567-3) Abnormal [facility] Lwaxtzn4879-77-12 20:15:24* Test Item Value Reference Range Interpretation Comme nts POC Glu (test code = 4134474691) 104 mg/dL 70-99 H POC Glu Comment 1 (test code = 6506031038) Cleaned Meter POC Performing Location (manpreet t code = 3961020398) NSICU Lab Interpretation (test cod e = 93192-6) Abnormal [facility] Hnfbzga3110-00-71 08:18:05* Test Item Value Reference Range Interpretation Comme nts POC Glu (test code = 2295776942) 147 mg/dL 70-99 H POC Performing Location (manpreet t code = 7741437551) NSICU Lab Interpretation (test cod e = 61445-4) Abnormal [facility] Ddgaptm7148-32-97 04:13:50* Test Item Value Reference Range Interpretation Comme nts POC Glu (test code = 5560330961) 167 mg/dL 70-99 H POC Glu Comment 1 (test code = 3534400873) Cleaned Meter POC Performing Location (manpreet t code = 1559291457) NSICU Lab Interpretation (test cod e = 39199-5) Abnormal [facility] Bxxafot5314-30-24 00:37:44* Test Item Value Reference Range Interpretation Comme nts POC Glu (test code = 7401026204) 159 mg/dL 70-99 H POC Glu Comment 1 (test code = 9683073927) Cleaned Meter POC Performing Location (manpreet t code = 2557543488) [address] Lab Interpretation (test cod e = 24851-7) Abnormal [facility] Jqfzmoj0033-01-40 20:34:57* Test Item Value Reference Range Interpretation Comme nts POC Glu (test code = 4024214369) 149 mg/dL 70-99 H POC Glu Comment 1 (test code = 3850475732) Cleaned Meter POC Performing Location (manpreet t code = 4556495049) NSICU Lab Interpretation (test cod e = 73320-3) Abnormal [facility] Repolpl4447-60-53 16:54:20* Test Item Value Reference Range Interpretation Comme nts POC Glu (test code = 1635955783) 144 mg/dL 70-99 H POC Performing Location (manpreet t code = 6967644622) LAB Lab Interpretation (test cod e = 59107-8) Abnormal [facility] Uofbmho8837-12-48 12:43:47* Test Item Value Reference Range Interpretation Comme nts POC Glu (test code = 0476150723) 140 mg/dL 70-99 H POC Performing Location (manpreet t code = 1245676990) LAB Lab Interpretation (test cod e = 87496-3) Abnormal [facility] Fxlqorh4980-44-89 08:33:13* Test Item Value Reference Range Interpretation Comme nts POC Glu (test code = 9661583921) 138 mg/dL 70-99 H POC Performing Location (manpreet t code = 4928810373) [address] Lab Interpretation (test cod e = 31249-8) Abnormal [facility] Hpojtxe4875-54-11 01:04:00* Test Item Value Reference Range Interpretation Comme nts POC Glu (test code = 2642193231) 136 mg/dL 70-99 H POC Performing Location (manpreet t code = 9730820825) J7 NSICU Lab Interpretation (test cod e = 29900-6) Abnormal [facility] Arterial Blood Gas Ycgon3104-14-24 01:04:00* Test Item Value Reference Range Interpretation Comme nts POC A Temp (test code = 1395720626) DegC POC A Source (test code = 4968646950) ART POC A pH (test code = 2744-1) 7.35-7.45 POC A PCO2 (test code = 2019-03) See_Comment [Automated messa ge] The system which generated this result transmitted reference range: 35 - 45 mmHg. The reference range was not used to interpret this result as normal/abnormal. POC A PO2 (test code = 2703-7) See_Comment [Automated messa ge] The system which generated this result transmitted reference range: 80 - 100 mmHg. The reference range was not used to interpret this result as normal/abnormal. POC A HCO3 (test code = 1960-4) See_Comment [Automated messa ge] The system which generated this result transmitted reference range: 22 - 26 mMol/L. The reference range was not used to interpret this result as normal/abnormal. POC A BE (test code = 1925-7) See_Comment [Automated messa ge] The system which generated this result transmitted reference range: -2 - 2 mMol/L. The reference range was not used to interpret this result as normal/abnormal. POC A O2 Sat (calc) (test code = 2708-6) 99.1 % 95-100 POC Performing Location (test code = 7139349567) [facility] Arterial Blood Gas and Basic Rciqt9752-72-43 16:58:08* Test Item Value Reference Range Interpretation Comme nts POC A Temp (test code = 1025900698) DegC POC A Source (test code = 2390836347) ART POC A pH (test code = 2744-1) 7.35-7.45 POC A PCO2 (test code = 2019-03) See_Comment L [Automated messa ge] The system which generated this result transmitted reference range: 35 - 45 mmHg. The reference range was not used to interpret this result as normal/abnormal. POC A PO2 (test code = 2703-7) See_Comment [Automated messa ge] The system which generated this result transmitted reference range: 80 - 100 mmHg. The reference range was not used to interpret this result as normal/abnormal. POC A HCO3 (test code = 1960-4) See_Comment [Automated messa ge] The system which generated this result transmitted reference range: 22 - 26 mMol/L. The reference range was not used to interpret this result as normal/abnormal. POC A BE (test code = 1925-7) See_Comment [Automated messa ge] The system which generated this result transmitted reference range: -2 - 2 mMol/L. The reference range was not used to interpret this result as normal/abnormal. POC A O2 Sat (calc) (test code = 2708-6) 99.8 % 95-100 POC A Hgb Tot (test code = 26102-4) 11.4 g/dL 13.7-17.5 L POC A Hct (calc) (test code = 60360-6) 34 % 40.1-51.0 L POC A Na (test code = 16368-1) See_Comment [Automated messa ge] The system which generated this result transmitted reference range: 135 - 145 mEq/L. The reference range was not used to interpret this result as normal/abnormal. POC A K (test code = 1334582) See_Comment [Automated messa ge] The system which generated this result transmitted reference range: 3.5 - 5.1 mEq/L. The reference range was not used to interpret this result as normal/abnormal. POC Chloride (test code = 1325530) See_Comment H [Automated messa ge] The system which generated this result transmitted reference range: 95 - 109 mEq/L. The reference range was not used to interpret this result as normal/abnormal. POC A Glu (test code = 2339-0) 157 mg/dL 70-99 H POC A LA (test code = 224) See_Comment [Automated messa ge] The system which generated this result transmitted reference range: 0.5 - 2.2 mMol/L. The reference range was not used to interpret this result as normal/abnormal. POC A Ca Ion (test code = 34526-4) See_Comment [Automated messa ge] The system which generated this result transmitted reference range: 1.05 - 1.25 mMol/L. The reference range was not used to interpret this result as normal/abnormal. POC A Ca Ion (7.4) (test code = 7080889438) 1.2 mmol/L 1.05-1.25 POC Performing Location (test code = 6207141527) [facility] Lab Interpretation (test code = 50594-7) Abnormal [facility] Arterial Blood Gas and Basic Mfhke4208-63-28 15:28:51* Test Item Value Reference Range Interpretation Comme nts POC A Temp (test code = 8675574008) DegC POC A Source (test code = 4072656086) ART POC A pH (test code = 2744-1) 7.35-7.45 POC A PCO2 (test code = 2019-8) See_Comment LL [Automated messa ge] The system which generated this result transmitted reference range: 35 - 45 mmHg. The reference range was not used to interpret this result as normal/abnormal. POC A PO2 (test code = 2703-7) See_Comment [Automated messa ge] The system which generated this result transmitted reference range: 80 - 100 mmHg. The reference range was not used to interpret this result as normal/abnormal. POC A HCO3 (test code = 1960-4) See_Comment L [Automated messa ge] The system which generated this result transmitted reference range: 22 - 26 mMol/L. The reference range was not used to interpret this result as normal/abnormal. POC A BE (test code = 1925-7) See_Comment L [Automated messa ge] The system which generated this result transmitted reference range: -2 - 2 mMol/L. The reference range was not used to interpret this result as normal/abnormal. POC A O2 Sat (calc) (test code = 2708-6) 99.8 % 95-100 POC A Hgb Tot (test code = 68944-7) 10.7 g/dL 13.7-17.5 L POC A Hct (calc) (test code = 51197-5) 32 % 40.1-51.0 L POC A Na (test code = 60858-6) See_Comment [Automated messa ge] The system which generated this result transmitted reference range: 135 - 145 mEq/L. The reference range was not used to interpret this result as normal/abnormal. POC A K (test code = 2231244) See_Comment L [Automated messa ge] The system which generated this result transmitted reference range: 3.5 - 5.1 mEq/L. The reference range was not used to interpret this result as normal/abnormal. POC Chloride (test code = 0192715) See_Comment H [Automated messa ge] The system which generated this result transmitted reference range: 95 - 109 mEq/L. The reference range was not used to interpret this result as normal/abnormal. POC A Glu (test code = 2339-0) 149 mg/dL 70-99 H POC A LA (test code = 224) See_Comment [Automated messa ge] The system which generated this result transmitted reference range: 0.5 - 2.2 mMol/L. The reference range was not used to interpret this result as normal/abnormal. POC A Ca Ion (test code = 00102-4) See_Comment L [Automated messa ge] The system which generated this result transmitted reference range: 1.05 - 1.25 mMol/L. The reference range was not used to interpret this result as normal/abnormal. POC A Ca Ion (7.4) (test code = 6905986710) 1.01 mmol/L 1.05-1.25 L POC Performing Location (test code = 9593880113) [facility] Lab Interpretation (test code = 38483-4) Abnormal [facility] Arterial Blood Gas and Basic Jexbl4931-32-47 13:37:09* Test Item Value Reference Range Interpretation Comme nts POC A Temp (test code = 3280902895) DegC POC A Source (test code = 8257585843) ART POC A pH (test code = 2744-1) 7.35-7.45 POC A PCO2 (test code = 2019-8) See_Comment L [Automated messa ge] The system which generated this result transmitted reference range: 35 - 45 mmHg. The reference range was not used to interpret this result as normal/abnormal. POC A PO2 (test code = 2703-7) See_Comment [Automated messa ge] The system which generated this result transmitted reference range: 80 - 100 mmHg. The reference range was not used to interpret this result as normal/abnormal. POC A HCO3 (test code = 1960-4) See_Comment L [Automated messa ge] The system which generated this result transmitted reference range: 22 - 26 mMol/L. The reference range was not used to interpret this result as normal/abnormal. POC A BE (test code = 1925-7) See_Comment L [Automated messa ge] The system which generated this result transmitted reference range: -2 - 2 mMol/L. The reference range was not used to interpret this result as normal/abnormal. POC A O2 Sat (calc) (test code = 2708-6) 99.8 % 95-100 POC A Hgb Tot (test code = 81388-9) 11.8 g/dL 13.7-17.5 L POC A Hct (calc) (test code = 01391-5) 35 % 40.1-51.0 L POC A Na (test code = 07614-5) See_Comment [Automated messa ge] The system which generated this result transmitted reference range: 135 - 145 mEq/L. The reference range was not used to interpret this result as normal/abnormal. POC A K (test code = 2001551) See_Comment [Automated messa ge] The system which generated this result transmitted reference range: 3.5 - 5.1 mEq/L. The reference range was not used to interpret this result as normal/abnormal. POC Chloride (test code = 8340893) See_Comment [Automated messa ge] The system which generated this result transmitted reference range: 95 - 109 mEq/L. The reference range was not used to interpret this result as normal/abnormal. POC A Glu (test code = 2339-0) 164 mg/dL 70-99 H POC A LA (test code = 224) See_Comment [Automated messa ge] The system which generated this result transmitted reference range: 0.5 - 2.2 mMol/L. The reference range was not used to interpret this result as normal/abnormal. POC A Ca Ion (test code = 79228-1) See_Comment [Automated messa ge] The system which generated this result transmitted reference range: 1.05 - 1.25 mMol/L. The reference range was not used to interpret this result as normal/abnormal. POC A Ca Ion (7.4) (test code = 8324416489) 1.04 mmol/L 1.05-1.25 L POC Performing Location (test code = 0934713095) [facility] Lab Interpretation (test code = 35239-4) Abnormal [facility] Arterial Blood Gas and Basic Ghhjh5529-61-52 08:54:36* Test Item Value Reference Range Interpretation Comme nts POC A Temp (test code = 7216317211) DegC POC A Source (test code = 7113085177) ART POC A pH (test code = 2744-1) 7.35-7.45 POC A PCO2 (test code = 2019-8) See_Comment [Automated messa ge] The system which generated this result transmitted reference range: 35 - 45 mmHg. The reference range was not used to interpret this result as normal/abnormal. POC A PO2 (test code = 2703-7) See_Comment [Automated messa ge] The system which generated this result transmitted reference range: 80 - 100 mmHg. The reference range was not used to interpret this result as normal/abnormal. POC A HCO3 (test code = 1960-4) See_Comment [Automated messa ge] The system which generated this result transmitted reference range: 22 - 26 mMol/L. The reference range was not used to interpret this result as normal/abnormal. POC A BE (test code = 1925-7) See_Comment [Automated messa ge] The system which generated this result transmitted reference range: -2 - 2 mMol/L. The reference range was not used to interpret this result as normal/abnormal. POC A O2 Sat (calc) (test code = 2708-6) 99.8 % 95-100 POC A Hgb Tot (test code = 87186-5) 13.2 g/dL 13.7-17.5 L POC A Hct (calc) (test code = 06475-3) 40 % 40.1-51.0 L POC A Na (test code = 72617-3) See_Comment L [Automated messa ge] The system which generated this result transmitted reference range: 135 - 145 mEq/L. The reference range was not used to interpret this result as normal/abnormal. POC A K (test code = 2919835) See_Comment [Automated messa ge] The system which generated this result transmitted reference range: 3.5 - 5.1 mEq/L. The reference range was not used to interpret this result as normal/abnormal. POC Chloride (test code = 0531113) See_Comment [Automated messa ge] The system which generated this result transmitted reference range: 95 - 109 mEq/L. The reference range was not used to interpret this result as normal/abnormal. POC A Glu (test code = 2339-0) 136 mg/dL 70-99 H POC A LA (test code = 224) See_Comment [Automated Ariisto] The system which generated this result transmitted reference range: 0.5 - 2.2 mMol/L. The reference range was not used to interpret this result as normal/abnormal. POC A Ca Ion (test code = 74719-3) See_Comment [Automated Ariisto] The system which generated this result transmitted reference range: 1.05 - 1.25 mMol/L. The reference range was not used to interpret this result as normal/abnormal. POC A Ca Ion (7.4) (test code = 1204011441) 1.08 mmol/L 1.05-1.25 POC Performing Location (test code = 7238579263) [facility] Lab Interpretation (test code = 37820-3) Abnormal [facility] Hepatobiliary Imaging w/ Ukef7777-41-55 15:34:56Patient: KIMBERLY IQBAL Date/Time11/03/2019 14:00 CDTReason for ExamAbdomen painReportEXAMINATION: [place] Hepatobiliary Imaging w/ Drug.LOCATION: R16.HISTORY: Abdomen pain.COMPARISON: CT abdomen 11/03/2019.TECHNIQUE: 7.6 mCi of Choletec was administered. 2.6 mcg of Kinevac was administered.FINDINGS:The liver was identified promptly without evidence of photopenic areas. Radiotracer is identified within the biliary tree by approximately 25 minutes and within the small bowel minutes. Radiotracer is appreciated within the gallbladder with 25 minutes.The ejection fractionis 92 %, which is within normal limits.IMPRESSION:No cystic duct obstruction.Ejection fraction is 92 % which is within normal limits. Final Dictated by: MD Bartlett Ankitkumar NDictated DT/TM: 11/03/2019 3:16 pmSigned by: MD Bartlett Ankitkumar NSigned (Electronic Signature): 11/03/2019 3:34 pmPOC Mjotdle5642-47-32 07:38:10* Test Item Value Reference Range Interpretation Comme nts Glucose POC (test code = Glucose POC) 137 mg/dL 70-115 H If you consi andres your patient critically ill, the Santiago-Accu Check Infrom II meter should not be used for Glucose determination. Draw a venous Glucose and send to the main Lab for analysis. CT Abdomen and Pelvis w/ Tlddpgnp9426-42-34 00:53:49Patient: KIMBERLY IQBAL Date/Time11/03/2019 00:43 CDTReason for ExamAbdominal p ainReportExam: CT abdomen or pelvis with contrast.Location: H 12HISTORY: Abdominal painTechnique: Enhanced spiral slices were taken from the dome of the diaphragm to the pubic symphysis. Sagittal andcoronal images were obtained. One or more of the following radiation dose reduction techniques was used: Automatic exposure control, adjustment of mA and/or KV according to the patient's size, and/orutilization of iterative reconstruction technique.Findings:The liver is diffusely of decreased attenuation consistent fatty infiltration. No mass is seen. The intra and extrahepatic biliary tree is normal. The hepatic and portal veins are patent. The gallbladder is unremarkable. No pericholecystic fluid or wall thickening is seen.The pancreas is normal. The pancreatic duct is normal in caliber. The spleen and adrenal glands are normal in size and shape.The kidneys are normal. No nephrolithiasis, perinephric fluid collections or hydronephrosis is seen.The large and small intestine are normal in caliberwith abundant fecal material in colon. The appendix is normal. No inflammatory change is bandar ntified.No lymphadenopathy or free fluid is found in the abdomen or the pelvis.The pelvic structures are unremarkable.The lung bases are clear.No incidental abdominal findings are noted.Impression:1.No acute abdominal findings.2. Fatty liver.3. Mild constipation.4. Otherwise unremarkable exam. Final Dictated by: MD Medina Francesco MDictated DT/TM: 11/03/2019 0:51 amSigned by: MD Medina Francesco MSigned (Electronic Signature): 11/03/2019 0:53 amComprehensive Metabolic Frmpm0630-82-41 22:32:24* Test Item Value Reference Range Interpretation Comme nts Sodium Level (test code = Sodium Level) 138.0 mmol/L 135.0-145.0 Potassium Level (test code = Potassium Level) 4.5 mmol/L 3.5-5.1 Chloride Level (test code = Chloride Level) 98 mmol/L 98-105 CO2 (test code = CO2) 23 mmol/L 22-29 Anion Gap (test code = Anion Gap) 17 mmol/L 7-16 H BUN (test code = BUN) 14.40 mg/dL 6.00-20.00 Creatinine Level (test code = Creatinine Level) 1.00 mg/dL 0.70-1.20 BUN/Creat Ratio (test code = BUN/Creat Ratio) 14 N Glucose Level (test code = Glucose Level) 118 mg/dL 70-115 H Calcium Level (test code = Calcium Level) 9.3 mg/dL 8.3-10.5 Alk Phos (test code = Alk Phos) 69 U/L 40-129 Bilirubin Total (test code = Bilirubin Total) 0.5 mg/dL 0.1-0.9 Albumin Level (test code = Albumin Level) 4.1 g/dL 3.5-5.2 Protein Total (test code = Protein Total) 7.1 g/dL 6.4-8.3 ALT (test code = ALT) 28 U/L 1-41 AST (test code = AST) see comment U/L 1-40 N 26Specimen hemolyzed. Globulin (test code = Globulin) 3.0 g/dL 2.9-3.1 A/G Ratio (test code = A/G Ratio) 1.4 ratio N Comprehensive Metabolic Hmztg5399-31-29 22:32:24* Test Item Value Reference Range Interpretation Comme nts Sodium Level (test code = Sodium Level) 138.0 mmol/L 135.0-145.0 Potassium Level (test code = Potassium Level) 4.5 mmol/L 3.5-5.1 Chloride Level (test code = Chloride Level) 98 mmol/L 98-105 CO2 (test code = CO2) 23 mmol/L 22-29 Anion Gap (test code = Anion Gap) 17 mmol/L 7-16 H BUN (test code = BUN) 14.40 mg/dL 6.00-20.00 Creatinine Level (test code = Creatinine Level) 1.00 mg/dL 0.70-1.20 BUN/Creat Ratio (test code = BUN/Creat Ratio) 14 N Glucose Level (test code = Glucose Level) 118 mg/dL 70-115 H Calcium Level (test code = Calcium Level) 9.3 mg/dL 8.3-10.5 Alk Phos (test code = Alk Phos) 69 U/L 40-129 Bilirubin Total (test code = Bilirubin Total) 0.5 mg/dL 0.1-0.9 Albumin Level (test code = Albumin Level) 4.1 g/dL 3.5-5.2 Protein Total (test code = Protein Total) 7.1 g/dL 6.4-8.3 ALT (test code = ALT) 28 U/L 1-41 AST (test code = AST) see comment U/L 1-40 N 26Specimen hemolyzed. Globulin (test code = Globulin) 3.0 g/dL 2.9-3.1 A/G Ratio (test code = A/G Ratio) 1.4 ratio N eGFR AA (test code = eGFR AA) >60 mL/min/1.73 m2 N eGFR (estimated Glomerular Filtration Rate) is an estimated value, calculated from the patient's serum creatinine using the MDRD equation. It is NOT the patient's actual GFR. The eGFR provides a more clinically useful measure of kidney disease than serum creatinine alone.This calculation takes sex and race into account, if the information is provided. If the race is not provided, and the patient is -[place], multiply by 1.212. If sex is not provided, and the patient is female, multiply by 0.742. Results for patients <18 years of age have not been validated by the MDRD study and should be interpreted with caution. eGFR Result Interpretation:eGFR > or = 60 is in the Normal RangeeGFR < 60 may mean kidney diseaseeGFR < 15 may mean kidney failure Ranges recommended by the National Kid[employer] Foundation, http://nkdep.nih.go v eGFR Non-AA (test code = eGFR Non-AA) >60.00 mL/min/1.73 m2 N eGFR (estimated Glomerular Filtration Rate) is an estimated value, calculated from the patient's serum creatinine using the MDRD equation. It is NOT the patient's actual GFR. The eGFR provides a more clinically useful measure of kidney disease than serum creatinine alone.This calculation takes sex and race into account, if the information is provided. If the race is not provided, and the patient is -[place], multiply by 1.212. If sex is not provided, and the patient is female, multiply by 0.742. Results for patients <18 years of age have not been validated by the MDRD study and should be interpreted with caution. eGFR Result Interpretation:eGFR > or = 60 is in the Normal RangeeGFR < 60 may mean kidney diseaseeGFR < 15 may mean kidney failure Ranges recommended by the National Kidney Foundation, http://nkdep.nih.go v Comprehensive Metabolic [id number] 22:32:24* Test Item Value Reference Range Interpretation Comme nts Sodium Level (test code = Sodium Level) 138.0 mmol/L 135.0-145.0 Potassium Level (test code = Potassium Level) 4.5 mmol/L 3.5-5.1 Chloride Level (test code = Chloride Level) 98 mmol/L 98-105 CO2 (test code = CO2) 23 mmol/L 22-29 Anion Gap (test code = Anion Gap) 17 mmol/L 7-16 H BUN (test code = BUN) 14.40 mg/dL 6.00-20.00 Creatinine Level (test code = Creatinine Level) 1.00 mg/dL 0.70-1.20 BUN/Creat Ratio (test code = BUN/Creat Ratio) 14 N Glucose Level (test code = Glucose Level) 118 mg/dL 70-115 H Calcium Level (test code = Calcium Level) 9.3 mg/dL 8.3-10.5 Alk Phos (test code = Alk Phos) 69 U/L 40-129 Bilirubin Total (test code = Bilirubin Total) 0.5 mg/dL 0.1-0.9 Albumin Level (test code = Albumin Level) 4.1 g/dL 3.5-5.2 Protein Total (test code = Protein Total) 7.1 g/dL 6.4-8.3 ALT (test code = ALT) 28 U/L 1-41 AST (test code = AST) see comment U/L 1-40 N 26Specimen hemolyzed. Globulin (test code = Globulin) 3.0 g/dL 2.9-3.1 A/G Ratio (test code = A/G Ratio) 1.4 ratio N eGFR AA (test code = eGFR AA) >60 mL/min/1.73 m2 N eGFR (estimated Glomerular Filtration Rate) is an estimated value, calculated from the patient's serum creatinine using the MDRD equation. It is NOT the patient's actual GFR. The eGFR provides a more clinically useful measure of kidney disease than serum creatinine alone.This calculation takes sex and race into account, if the information is provided. If the race is not provided, and the patient is -[place], multiply by 1.212. If sex is not provided, and the patient is female, multiply by 0.742. Results for patients <18 years of age have not been validated by the MDRD study and should be interpreted with caution. eGFR Result Interpretation:eGFR > or = 60 is in the Normal RangeeGFR < 60 may mean kidney diseaseeGFR < 15 may mean kidney failure Ranges recommended by the National Kidney Foundation, http://nkdep.nih.go v eGFR Non-AA (test code = eGFR Non-AA) >60.00 mL/min/1.73 m2 N eGFR (estimated Glomerular Filtration Rate) is an estimated value, calculated from the patient's serum creatinine using the MDRD equation. It is NOT the patient's actual GFR. The eGFR provides a more clinically useful measure of kidney disease than serum creatinine alone.This calculation takes sex and race into account, if the information is provided. If the race is not provided, and the patient is -[place]e, multiply by 1.212. If sex is not provided, and the patient is female, multiply by 0.742. Results for patients <18 years of age have not been validated by the MDRD study and should be interpreted with caution. eGFR Result Interpretation:eGFR > or = 60 is in the Normal RangeeGFR < 60 may mean kidney diseaseeGFR < 15 may mean kidney failure Ranges recommended by the National Kidney Foundation, http://nkdep.nih.go v Hemoglobin [id number] 22:31:41* Test Item Value Reference Range Interpretation Comme nts Hemoglobin A1c (test code = Hemoglobin A1c) 8.5 % 4.8-5.9 H Non Diabetic 4.8-5.9%Diabetic <7.0% Complete Blood Count with [id number] 22:14:45* Test Item Value Reference Range Interpretation Comme nts WBC (test code = WBC) 10.3 x10 4.4-10.5 RBC (test code = RBC) 5.40 x10 4.10-5.70 Hgb (test code = Hgb) 15.6 g/dL 13.4-17.4 MCV (test code = MCV) 86.70 fL 80.00-100.00 Hct (test code = Hct) 46.8 % 38.7-52.0 MCHC (test code = MCHC) 33.30 g/dL 32.00-37.50 RDW CV (test code = RDW CV) 13.1 % 11.5-14.5 MCH (test code = MCH) 28.9 pg 27.0-32.5 Platelets (test code = Platelets) 197.0 x10 140.0-440.0 MPV (test code = MPV) 9.9 fL N Slide Review (test code = Slide Review) Auto Auto Result crea jennifer by GL_SJM_SLIDE_REV_AUTO nRBC (test code = nRBC) 0 N NRBC Abs (test code = NRBC Abs) 0.00 x10 N IPF (test code = IPF) 0 % N Automated [id number] 22:14:45* Test Item Value Reference Range Interpretation Comme nts Neutro Auto (test code = Delphine tro Auto) 64.5 % 36.0-70.0 Lymph Auto (test code = Lymph Auto) 23.7 % 12.0-44.0 [place] Auto (test code = [place] Auto) 8.9 % 0.0-11.0 Eos, Auto (test code = Eos, Auto) 2.3 % 0.0-7.0 Basophil Auto (test code = B asophil Auto) 0.3 % 0.0-2.0 Neutro Absolute (test code = Neutro Absolute) 6.6 x10 1.6-7.4 Lymph Absolute (test code = Lymph Absolute) 2.43 x10 .50-4.60 [place] Absolute (test code = M dvaid Absolute) .91 x10 .00-1.20 Eos Absolute (test code = Eo s Absolute) 0.24 x10 0.00-0.74 Baso Absolute (test code = B aso Absolute) 0.03 x10 0.00-0.21 IG [id number] 22:14:45* Test Item Value Reference Range Interpretation Comme nts IG (test code = IG) 0.3 % 0.0-5.0 IG Abs (test code = IG Abs) 0 x10 N Consult Notes Date/Time Note Provider Source 2024-08-07 09:33:17 NUTRITION ASSESSMENT - ADULT Unit: [address] Encounter: TF Consult Findings Nutrition Diagnosis: Nutrition Diagnosis: Inadequate oral intake related to dysphagia and respiratory distress as evidenced by NPO status and requiring enteral nutrition for nutrient. EVALUATION : Resolved * Interventions and Recommendation: Continue current plan. RD to s/o, reconsult prn. NUTRITION RISK: No risk, clinical nutrition signing off. Reconsult as needed. Communication : Primary team Current Nutrition: Dietary Orders (From admission, onward) Start Ordered 08/01/24 1028 Adult Diet Regular Diet effective now Question: Diet type Answer: Regular 08/01/24 1028 Orderered Tube Feeds and Supplements Medication Dose Route Frequency Provider Last Rate Last Admin Premier Protein Shake liquid 325 mL 1 Bottle Oral TID with meals Collette Lincoln MD 325 mL at 08/04/24 1200 PO/EN/PN Intakes: No data found. Nutrition Visit Information: 08/07: pt reports good appetite and po intake. Reports eating 100% of meals. Denies any n/v/c/d. Reports not drinking ons, will dc. Pt is planned for dc today. Will s/o. 08/01 Passed FEES this morning for regular diet. NGT removed. Adding Premier Protein TID 07/31 - Intubated. +NGT. TF orders placed during rounds. New SCI s/p C-spine ACDF. Anthropometrics: Height: 180.3 cm (5' 11") Height Method: Stated Weight: Weight Method: Stated Body mass index is 41.84 kg/m?. Dumont body weight: 75.3 kg (166 lb 0.1 oz) Adjusted ideal body weight: 99.6 kg (219 lb 9.7 oz) Wt Readings from Last 10 Encounters: 07/29/24 136 kg (300 lb) Estimated Nutrition Needs: Weight Used for Equation Calculations: 86 kg (189 lb 9.5 oz) (IBW +10%) Calculated Energy Needs Using Equations Height: 1.803 m (5' 11") Weight Used for Equation Calculations: 86 kg (189 lb 9.5 oz) (IBW +10%) Energy Equation Used: Rule of thumb (kcal/kg) Energy Lower Range: 25 (kcal/kg) Energy Upper Range: 30 (kcal/day) Energy Needs Lower Range: 2150 kcal/day (kcal/day) Energy Needs Upper Range: 2580 kcal/day Minute Ventilation (L/min): 11.2 L/min Temp: 36.4 ?C (97.6 ?F) Estimated Protein Needs (g/kg) Protein Lower Range: 1.5 (g/kg) Protein Upper Range: 2.0 (g/day) Protein Lower Range: 129 g/day (g/day) Protein Upper Range: 172 g/day Fluid Needs Fluid Needs Method: Or per MD (mL/kg) Fluid Needs: 30 (mL/day) Fluid Needs (Calculated): 2580 mL/day Nutrition Physical Findings per health information systems technician: Orientation Level: Oriented X4 O2 Delivery Method: Nasal cannula Gastrointestinal (WDL): WDL Abdomen Inspection: No ascites Abdominal Tenderness: Nontender Bowel Sounds: All quadrants Bowel Sounds (All Quadrants): Active Last BM Date: 08/06/24 LUE: Full movement RUE: Limited movement LLE: Full movement RLE: Full movement Wound 07/29/24 Traumatic Left Scalp (Active) Wound 07/29/24 Traumatic Left Flank (Active) Wound 07/29/24 Traumatic Anterior;Right Arm (Active) Wound 07/30/24 Surgical Anterior Neck (Active) Wound 07/30/24 Surgical Posterior Neck (Active) Nutrition Focused Physical Exam - Muscles and Fat: Assessment of Muscle Status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 (Results Pending) Trauma CT BRAIN WO IV CONTRAST (Results Pending) Trauma CT ANGIOGRAM NECK (Results Pending) MRI cervical spine wo IV contrast (Results Pending) NEURO ASSESSMENT/PLAN: Assessment: Daphne Avitia is a 59 y.o. male with PMH of DM and HTN presents after FDC unhealmeted. NSGY consulted for CT cervical spine finding of C1 right posterior arch fracture, C2 hangman fracture coronally oriented with fracture line going through transverse foramen, C5 right pedicle fracture. CTA head/neck show right vertebral artery g2 BCVI at the level of C2-3. CT head negative. Patient complains of allodynia of bilateral shoulder and collar bone, and right arm numbness and weakness. No antiplatelet anticoagulant use. Impression: - shoulder allodynia bilaterally - C1 posterior arch fx, C2 coronal oriented fx, C5 R lamina fx - g2 BCVI R vert Plan: -MRI C-spine and CCJ without contrast STAT concerning for central cord, imaging reviewed -MRI brachial plexus ordered given right side weakness and numbness pending read -Keep NPO -Admit to [address] [place] -To OR as first start case for STAGE 1: C5-C6 ACDF, STAGE 2: C3-C7 laminoplasty, C5-C6 PSF, partial C2 and T1 laminectomy, multilevel foraminotomies. -[place]-J ordered from [facility] -Maintain [place]-J at all times -Repeat CTA head/neck post-op for BCVI finding, start [id number] daily when able -Pain management per ED - Please call [phone] with NSGY questions or concerns [facility] Neurosurgery Emile Mack MD MS Neurological Surgery Resident PGY2 I saw this patient and agree with plan. Ceasar Sanchez LOGUE LIBRARIAN LOGUE LIBRARIAN LOGUE LIBRARIAN LOGUE LIBRARIAN LOGUE LIBRARIAN LOGUE LIBRARIAN [facility] Procedure Notes Date/Time Note Provider Source 2024-08-01 10:12:00 Associated Order(s): 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 FEES PROCEDURE Images from the original note were not included. [facility] 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 FIBEROPTIC ENDOSCOPIC EVALUATION OF SWALLOWING (FEES) Patient Name: Kimberly Iqbal Today's Date: 08/01/2024 Room: [place] [id number] FEES EVALUATION SUMMARY: Pt was positioned upright in bed for FEES procedure. Neck brace on. NGT in nare. Consent obtained. Presented po trials of thin liquid, mildly thick/nectar thick liquid, puree, and regular solid. Pt demonstrated within functional limits swallow. Adequate bolus acceptance and timely oral transit. Mastication was timely and efficient. No penetration/aspiration visualized with any of the presented consistencies. Swallow safety and efficiency intact. RECOMMENDATIONS: Regular diet, thin liquid. Monitor closely for s/s of aspiration. If concerns arise, please hold po and consult with 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. Medications: As tolerated Swallow Precautions: Oral hygiene after meals, Remain upright after meals 30 minutes, Upright to 90 degrees, Small bites/sips, Feed only when alert Supervision Recommended: Set-up Oral care: Regular toothbrush 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 services are no longer warranted. If other concerns arise, please reconsult 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. RN notified. GENERAL INFORMATION: Reason for Consult: Pt was referred for a FEES evaluation in the setting of s/p C5-6 ACDF, C3-7 laminoplasty, C5-6 PSF, R C3-4 foraminotomy, L C4-5, C6-7 formaminotomy Oxygenation: Room air Behavior:Cooperative Level of Consciousness: Awake & alert Pain: Pain Assessment: DVPRS Pain Score: 0 Diet Prior to this Evaluation: NPO Preferred Language: Bahraini PRE-ASSESSMENT: 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 Pre-Assessment Current Method of Nutrition: Nasogastric tube, NPO until cleared by Speech FEES PROCEDURE: The Patient was educated re: the purpose of the test and the procedure. The Patient was given the chance to ask questions re: the procedure and provided verbal assent. The [facility] [employer] [facility] was utilized at this evaluation. Pt completed instrumental assessment of the swallow while seated upright in bed. Time out was performed, and the flexible endoscope was passed through the right naris, through the velopharyngeal port, and into the oropharynx where visualization of the hypopharynx was obtained. Laryngeal anatomy was marked with swollen left arytenoid and posterior pharyngeal swallow. Suspect swelling of the left arytenoid due to NGT in place. Arytenoid making contact with NGT. EXAMINATION METHOD: Examination Method Previous MBS or FEES: No Time out protocol completed: Yes Respiratory Status: Room air Foreign Body Obstruction: NGT ANATOMICAL OVERVIEW Anatomical Overview Views of The Larynx and Vocal Folds Included: Within Functional Limits Secretions: 1-Standing secretions in valleculae, lateral channels, pyriforms Velopharyngeal Closure: Within Functional Limits Epiglottis: Within Functional Limits Valleculae: Within Functional Limits Arytenoids: Swelling Posterior Pharyngeal Wall: Swelling True Vocal Cords at Rest: Within Functional Limits True Vocal Cords During Voicing: Within Functional Limits FEES BOLUS: Bolus 1: Bolus 1 Texture: 0 Thin Method of Feeding: Spoon Swallow Initiated: Base of tongue Rachael-Valleculae Residue: I- None 0% No Residue [place]-Pyriform Sinus Residue: I- None 0% No Residue Penetration-Aspiration Scale: 1: Material does not enter airway Bolus 2: Bolus 2 Texture: 0 Thin Method of Feeding: Straw Swallow Initiated: Base of tongue [place]-Valleculae Residue: I- None 0% No Residue [place]-Pyriform Sinus Residue: I- None 0% No Residue Penetration-Aspiration Scale: 1: Material does not enter airway Bolus 3: Bolus 3 Texture: 2 Mildly Thick Method of Feeding: Straw Swallow Initiated: Base of tongue [place]-Valleculae Residue: I- None 0% No Residue [place]-Pyriform Sinus Residue: I- None 0% No Residue Penetration-Aspiration Scale: 1: Material does not enter airway Bolus 4: Bolus 4 Texture: 4 Pureed Method of Feeding: Spoon Swallow Initiated: Base of tongue [place]-Valleculae Residue: I- None 0% No Residue [place]-Pyriform Sinus Residue: I- None 0% No Residue Penetration-Aspiration Scale: 1: Material does not enter airway Bolus 5: Bolus 5 Texture: 7 Regular Swallow Initiated: Valleculae [place]-Valleculae Residue: I- None 0% No Residue [place]-Pyriform Sinus Residue: I- None 0% No Residue Penetration-Aspiration Scale: 1: Material does not enter airway OUTCOME MEASURES: International Dysphagia Diet Standardization Initiative - IDDSI Solids - 7 - Regular Liquids - 0 - Thin IDDSI Level - 8 FUNCTIONAL ORAL INTAKE SCALE (FOIS), SANDY ET AL., 2005: 7- Total oral diet with no restrictions DYSPHAGIA OUTCOME AND SEVERITY SCALE (CASSIE), O'GENET ET AL., 1999: 7 = Normal in all situations. Normal diet. No strategies or extra time needed. EDUCATION: Education Documentation Speech-Language/Pathology Treatment Plan, taught by LAURA Lyle at 08/01/2024 10:12 AM. Learner: Patient Readiness: Acceptance Method: Explanation Response: Verbalizes Understanding Results of Exam, taught by LAURA Lyle at 08/01/2024 10:12 AM. Learner: Patient Readiness: Acceptance Method: Explanation Response: Verbalizes Understanding Education Comments No comments found. If this is the last documented treatment, then it will signify discharge from acute care prior to discharge from the therapy service and will serve as the discharge summary. Therapy discharge recommendations are made by determining the patient's prior level of function, assessing current function level and establishing rehab potential. The overall discharge plan may be affected by input from Physicians, Care Coordination, medical condition/status, family support and insurance benefits. LAURA Lyle LOGUE LIBRARIAN Speech Pathology Speech and Language Pathologist [facility] [place] 2024-07-30 07:49:00 PATIENT NAME: KIMBERLY IQBAL DATE OF OPERATION/PROCEDURE: 07/30/2024 *_*_* PREOPERATIVE DIAGNOSES: Unstable Cervical hyperextension injury with multiple findings including: C1 RIGHT posterior laminar fracture C2 combined traumatic spondylolisthesis and coronal vertebral body fracture without displacement or disc injury. C5-C6 disc disruption with ALL and PLL injury, C5 pedicle and laminar fracture. C2-T1 stenosis with cord compression and contusion at C3-C4. C3 RODOLFO D SCI. Trauma Mechanism: FDC. POSTOPERATIVE DIAGNOSES: Unstable Cervical hyperextension injury with multiple findings including: C1 RIGHT posterior laminar fracture C2 combined traumatic spondylolisthesis and coronal vertebral body fracture without displacement or disc injury. C5-C6 disc disruption with ALL and PLL injury, C5 pedicle and laminar fracture. C2-T1 stenosis with cord compression and contusion at C3-C4. C3 RODOLFO D SCI. Trauma Mechanism: FDC. PROCEDURES PERFORMED: STAGE 1: Anterior right-sided approach to cervical spine from C5-C6. Anterior disc resections at C5-C6. Microforaminotomy at C5-C6 bilaterally. Use of microscope for decompression. Anterior interbody fusion C5-C6. Local harvest of autograft bone. Use of morcellized autograft for fusion at C5-C6. Use of allograft (DBX) for fusion at C5-C6. Anterior instrumentation from C5-C6 with the below stated plate and interbody from Globus: Globus C5-C6 - Globus Hedron C 14 mm * 16 mm * 8 mm with 7 degrees lordosis Globus XTEND 16 mm (1 level) plate 4.2 mm x 14 mm self drilling variable screw (4) Radiographic identification of surgical level and for confirmation of the appropriate placement of the graft. Use of fluoroscopy for duration of instrumentation. SURGEON: Ceasar Sanchez MD DIGITAL OPERATIONS ANALYST: Elizabeth Tyson MD ANESTHESIA: General endotracheal tube anesthesia. COMPLICATIONS: None. IVF: 2500 cc crystalloid, 1500 colloid U/O: 3000 cc ESTIMATED BLOOD LOSS 500 cc Fluid totals for Stage 1 and 2 combined. INDICATIONS FOR SURGERY: 59 yo M with the following: Unstable Cervical hyperextension injury with multiple findings including: C1 RIGHT posterior laminar fracture C2 combined traumatic spondylolisthesis and coronal vertebral body fracture without displacement or disc injury. C5-C6 disc disruption with ALL and PLL injury, C5 pedicle and laminar fracture. C2-T1 stenosis with cord compression and contusion at C3-C4. C3 RODOLFO D SCI. Trauma Mechanism: FDC. Daphne Avitai is a 59 y.o. male with PMH of DM and HTN presents after FDC unhealmeted. NSGY consulted for CT cervical spine finding of C1 right posterior arch fracture, C2 hangman fracture coronally oriented with fracture line going through transverse foramen, C5 right pedicle fracture. CTA head/neck show right vertebral artery g2 BCVI at the level of C2-3. CT head negative. Patient complains of allodynia of bilateral shoulder and collar bone, and right arm numbness and weakness. No antiplatelet anticoagulant use. MRI cervical 07/30/2024 MH: Edema-like signal associated with known C2 and C1 fractures. T2 hyperintense abnormal cord signal at C3-C4 level concerning for cord contusion/edema. Moderate to severe thecal sac narrowing. C5-6 anterior disc space widening with disruption of the anterior longitudinal ligament, and stripping of the posterior longitudinal ligament, with thickening and irregularity of the ligamentum flavum at this level. Overall moderate thecal sac narrowing with cord deformity. No convincing abnormal cord signal at this level. Varying degrees of moderate to severe thecal sac narrowing with deformed cord at multiple levels as discussed. A dorsal epidural hematoma extends from C6-T3 level. Slight asymmetric attenuation of the left side of the transverse ligament. Ill-defined T2 hyperintensity involving the right alar ligament which may represent sprain/partial-thickness tear. Prevertebral soft tissue edema/fluid extending from C1-C7 level. Posterior paraspinous and interspinous soft tissue edema/injury at multiple levels as discussed. Bone contusions involving T1, T2 and T3 vertebral bodies. Please refer to concurrently performed MR brachial plexus report for respective findings. CT cervical 07/29/2024 MH: Acute minimally displaced coronally oriented right C1 posterior arch fracture (AO spine classification 2A). Acute minimally displaced coronally oriented fracture of the posterior aspect of the C2 vertebral body extending to the bilateral transverse foramina and atlantoaxial facet joints (AO spine 3A). Recommend further evaluation with CTA of the neck to assess for vertebral arterial injury. Small nondisplaced fracture of the C4 right inferior articular process. (AO spine 3A). Obliquely oriented fracture of the bilateral C5 laminae extending to the inferior articular processes and facet joints with suspicion of ligamentous injury (AO spine. B2/B3). CTA neck 06/16/2023 MH: Grade 2 vascular injury of the distal V2 and V3 segments of the right vertebral artery. Above 40% luminal narrowing of the right V3 at the level of C2/C3 in setting of C2 cervical spine fracture. Small fracture fragments are seen within the transverse foramina at this level. On exam: D B T WE FE FF HI IPs R 2 2 2 2 2 2 2 4+ L 4+ 4+ 4+ 4+ 4+ 4+ 4+ 4+ Dysesthetic pain throughout entire RIGHT arm. Patient has a grossly unstable C5-C6 hyperextension injury with severe cord compression. The patient will require anterior and posterior stabilization and decompression. The C1 and C2 fractures may be managed in a collar. The C5-C6 fractures will require anterior and posterior stabilization. C3-C7 will require decompression. To preserve the maximum amount of motion segments while partially preserving the posterior tension band, we will offer the following: STAGE 1: RIGHT approach C5-C6 ACDF, open correction of deformity. STAGE 2: C5-C6 PSF; C3-C7 laminoplasty; partial C2 and T1 laminectomy; RIGHT C3-C4, LEFT C4-C5, LEFT C6-C7 foraminotomy; open correction of fracture deformity. We discussed all the risks and benefits with the patient including bleeding, infection, neurologic injury, which would include weakness, numbness, paralysis, cerebrospinal fluid leak, . With that anterior cervical exposure there is possibility of esophageal injury, dysphagia, hoarseness, vascular injury, lymphatic injury, nervous injury. With instrumentation and fusion, there is failure of instrumentation, failure of fusion, adjacent segment disease and need for further reoperation. The patient expressed understanding of the risks and benefits of procedure and wishes to proceed. The patient understands the goals of surgery. No guarantees were made to the outcome. DESCRIPTION OF OPERATION: The patient was appropriately identified with all markers. The patient was brought back by anesthesia and received general endotracheal tube anesthesia with the neck in neutral position. The patient was then dosed with preoperative antibiotics. The patient was placed in supine position on a single folded sheet. Neck was extended gently within the patient's natural range of motion. A skin marker was placed at the skin at the C5-C6 disc space and lateral radiographs taken for confirmation. All pressure points were carefully checked and padded. SCDs were placed on both lower extremities for thrombosis prophylaxis. The patient received antibiotic prophylaxis within an hour the incision and operative timeout was performed. The incision was planned for: Stage 1: RIGHT approach C5-C6 ACDF, open correction of deformity. The incision was planned at the skin for an incision line closest to the C5-C6 region as estimated by lateral radiograph. The patient was then prepped and draped in sterile fashion, which included alcohol wash, ChloraPrep, and Betadine scrub and paint. Marcaine 0.5% with epinephrine was infiltrated into the incision area. A right-sided approximately 1.5 inch long transverse incision was made at the skin fold stated above. A #15 blade scalpel was used to incise the skin and subcutaneous tissue down to platysma until the superficial layer of the deep cervical fascia was exposed. This area was then carefully incised along the medial border of sternocleidomastoid using Metzenbaum scissors. Finger dissection was used to bluntly dissect the deep lateral carotid sheath from the medial esophageal bundle. Cloward retractors were used to expose longus colli muscles anterior to the spine and Kitners were used to bluntly dissect away the longus colli muscles bilaterally exposing the periostseum and disc spaces. The 20-gauge spinal needle was then placed to paulina disc space and lateral radiographs were taken to confirm the level. Subperiosteal dissection was then performed at the level of interest, taking care not to violate the uninvolved disc spaces. Kitners and bipolar cautery were used in this dissection and self-retaining retractors were then placed underneath the longus colli bilaterally. Anesthesia was instructed at this time to desufflate and re-inflate the cuff. This was done every time the distractors were repositioned to provide relief to the recurrent laryngeal nerve. The anterior ligamentous structures and disc were found to be grossly disrupted at C5-C6. There was significant prevertebral edema. The microscope was then carefully positioned and an anterior cervical discectomy at C5-C6 was then commenced. Annulotomy was performed using a #15 blade and small pituitary rongeurs. Curets were used to remove disc material. A high-speed bur was used to remove the endplates down to bleeding bone in preparation for interbody fusion, the cartilaginous endplates were completely removed in preparation for implant and prosthesis placement. Autograft bone was harvested from drilling. At C5-C6, there was some herniation of disc superiorly behind the C5 vertebral body but superficial to the PLL. This disc was fully delivered with nerve hooks. The PLL was resected. Bilateral microforaminotomies were performed with Kerrisons at C5-C6. Once all the compressive material had been removed, the dura was clearly visualized and found to be completely free without compression. A small angled probe was inserted and with direct visualization and palpation, there was found to be no more compressive lesion anterior to the spinal cord. Careful visualization was made of the bilateral foramina and there was no noted compressive disc during this region. After decompression the implant size was estimated using trial implants. The appropriate size implant graft was chosen for situation, specifically the graft as detailed above. The center space of the graft was packed with autograft bone harvested and the previously mentioned bone graft extenders and biologics. The graft was then inserted under fluoroscopy. The appropriate drill guide was then used to predrill the holes for the screws under fluoroscopic guidance. Screws were then placed using standard technique. Securing the plate to the screws as well allowed for correction of fracture deformity. The screws had optimal purchase and were secured within the locking mechanism. Lateral and AP radiograph was taken to confirm the appropriate placement of the graft and instrumentation at this time. An O-arm spin confirmed placement of instrumentation and correction of fracture deformity. After all implanted grafts and screws were in place, abundant irrigation of the wound was performed with antibiotic-containing irrigation. There was no esophageal tear seen after direct visual inspection. All bleeding was controlled with bipolar electrocautery, thrombin-soaked Gelfoam and FloSeal. Closure was then commenced. The platysma muscle was closed using interrupted 3-0 Vicryl. The subcutaneous layer was closed using running 4-0 Monocryl. The skin was closed with Mastisol, Telfa and Hypafix tape. All needle and sponge counts were correct. There were no complications during the surgery. Dr. Sanchez was present and scrubbed for the critical portions of the procedure and available for all others. The patient was prepared for Stage 2. [facility] 2024-07-30 07:49:00 PATIENT NAME: KIMBERLY IQBAL DATE OF OPERATION/PROCEDURE: 07/30/2024 *_*_* PREOPERATIVE DIAGNOSES: Unstable Cervical hyperextension injury with multiple findings including: C1 RIGHT posterior laminar fracture C2 combined traumatic spondylolisthesis and coronal vertebral body fracture without displacement or disc injury. C5-C6 disc disruption with ALL and PLL injury, C5 pedicle and laminar fracture. C2-T1 stenosis with cord compression and contusion at C3-C4. C3 RODOLFO D SCI. Trauma Mechanism: FDC. POSTOPERATIVE DIAGNOSES: Unstable Cervical hyperextension injury with multiple findings including: C1 RIGHT posterior laminar fracture C2 combined traumatic spondylolisthesis and coronal vertebral body fracture without displacement or disc injury. C5-C6 disc disruption with ALL and PLL injury, C5 pedicle and laminar fracture. C2-T1 stenosis with cord compression and contusion at C3-C4. C3 RODOLFO D SCI. Trauma Mechanism: FDC. PROCEDURES PERFORMED: STAGE 2: Posterior midline approach to the spine from C2-T1. Partial C2 and T1 laminectomy. LEFT approach C3-C7 laminoplasty. RIGHT C3-C4, LEFT C4-C5, LEFT C6-C7 foraminotomy. Posterolateral arthrodesis from C5-C6. Use of morcellized autograft for arthrodesis. Use of allograft (DBX) for arthrodesis. Segmental posterior instrumentation from C3-C7 using the following devices from Globus: Globus Quartex Posterior Cervical LEFT C5 - 3.5 * 14 mm favored angle screw (lateral mass) C6 - 3.5 * 14 mm favored angle screw (lateral mass) LEFT C5 - 3.5 * 14 mm favored angle screw (lateral mass) C6 - 3.5 * 12 mm favored angle screw (lateral mass) Titanium rods 3.5 mm (2) Set screws (4) Globus Canopy Laminoplasty C3 - 11 mm plate laminar screws, 2.2*6 mm (2) lateral mass screws, 2.2*6 mm (2) C4 - 13 mm plate laminar screws, 2.2*6 mm (2) lateral mass screws, 2.2*6 mm (2) C5 - no plate (laminar fracture) C6 - 11 mm plate (lateral mass screw) laminar screws, 2.2*6 mm () C7 - 9 mm plate laminar screws, 2.2*6 mm (2) lateral mass screws, 2.2*6 mm (2) Use of radiographs for vertebral level localization. Open correction of C2-C7 spine deformity SURGEON: Ceasar Sanchez MD DIGITAL OPERATIONS ANALYST: Elizabeth Tyson MD ANESTHESIA: General endotracheal tube anesthesia. COMPLICATIONS: None. IVF: 2500 cc crystalloid, 1500 colloid U/O: 3000 cc ESTIMATED BLOOD LOSS 500 cc Fluid totals for Stage 1 and 2 combined. INDICATIONS FOR SURGERY: 59 yo M with the following: Unstable Cervical hyperextension injury with multiple findings including: C1 RIGHT posterior laminar fracture C2 combined traumatic spondylolisthesis and coronal vertebral body fracture without displacement or disc injury. C5-C6 disc disruption with ALL and PLL injury, C5 pedicle and laminar fracture. C2-T1 stenosis with cord compression and contusion at C3-C4. C3 RODOLFO D SCI. Trauma Mechanism: FDC. Daphne Avitia is a 59 y.o. male with PMH of DM and HTN presents after FDC unhealmeted. NSGY consulted for CT cervical spine finding of C1 right posterior arch fracture, C2 hangman fracture coronally oriented with fracture line going through transverse foramen, C5 right pedicle fracture. CTA head/neck show right vertebral artery g2 BCVI at the level of C2-3. CT head negative. Patient complains of allodynia of bilateral shoulder and collar bone, and right arm numbness and weakness. No antiplatelet anticoagulant use. MRI cervical 07/30/2024 MH: Edema-like signal associated with known C2 and C1 fractures. T2 hyperintense abnormal cord signal at C3-C4 level concerning for cord contusion/edema. Moderate to severe thecal sac narrowing. C5-6 anterior disc space widening with disruption of the anterior longitudinal ligament, and stripping of the posterior longitudinal ligament, with thickening and irregularity of the ligamentum flavum at this level. Overall moderate thecal sac narrowing with cord deformity. No convincing abnormal cord signal at this level. Varying degrees of moderate to severe thecal sac narrowing with deformed cord at multiple levels as discussed. A dorsal epidural hematoma extends from C6-T3 level. Slight asymmetric attenuation of the left side of the transverse ligament. Ill-defined T2 hyperintensity involving the right alar ligament which may represent sprain/partial-thickness tear. Prevertebral soft tissue edema/fluid extending from C1-C7 level. Posterior paraspinous and interspinous soft tissue edema/injury at multiple levels as discussed. Bone contusions involving T1, T2 and T3 vertebral bodies. Please refer to concurrently performed MR brachial plexus report for respective findings. CT cervical 07/29/2024 MH: Acute minimally displaced coronally oriented right C1 posterior arch fracture (AO spine classification 2A). Acute minimally displaced coronally oriented fracture of the posterior aspect of the C2 vertebral body extending to the bilateral transverse foramina and atlantoaxial facet joints (AO spine 3A). Recommend further evaluation with CTA of the neck to assess for vertebral arterial injury. Small nondisplaced fracture of the C4 right inferior articular process. (AO spine 3A). Obliquely oriented fracture of the bilateral C5 laminae extending to the inferior articular processes and facet joints with suspicion of ligamentous injury (AO spine. B2/B3). CTA neck 06/16/2023 MH: Grade 2 vascular injury of the distal V2 and V3 segments of the right vertebral artery. Above 40% luminal narrowing of the right V3 at the level of C2/C3 in setting of C2 cervical spine fracture. Small fracture fragments are seen within the transverse foramina at this level. On exam: D B T WE FE FF HI IPs R 2 2 2 2 2 2 2 4+ L 4+ 4+ 4+ 4+ 4+ 4+ 4+ 4+ Dysesthetic pain throughout entire RIGHT arm. Patient has a grossly unstable C5-C6 hyperextension injury with severe cord compression. The patient will require anterior and posterior stabilization and decompression. The C1 and C2 fractures may be managed in a collar. The C5-C6 fractures will require anterior and posterior stabilization. C3-C7 will require decompression. To preserve the maximum amount of motion segments while partially preserving the posterior tension band, we will offer the following: STAGE 1: RIGHT approach C5-C6 ACDF, open correction of deformity. STAGE 2: C5-C6 PSF; C3-C7 laminoplasty; partial C2 and T1 laminectomy; RIGHT C3-C4, LEFT C4-C5, LEFT C6-C7 foraminotomy; open correction of fracture deformity. We discussed all the risks and benefits with the patient including bleeding, infection, neurologic injury, which would include weakness, numbness, paralysis, cerebrospinal fluid leak, . With that anterior cervical exposure there is possibility of esophageal injury, dysphagia, hoarseness, vascular injury, lymphatic injury, nervous injury. With instrumentation and fusion, there is failure of instrumentation, failure of fusion, adjacent segment disease and need for further reoperation. The patient expressed understanding of the risks and benefits of procedure and wishes to proceed. The patient understands the goals of surgery. No guarantees were made to the outcome. DESCRIPTION OF OPERATION: Patient had just completed STAGE 1. [place] head of biology was attached and secured to 60 pounds of torque. The patient was then turned prone onto a OR table and gel rolls. The Webb was secured to the bed with the bed attachment. All bony prominences were padded. SCDs were placed on bilateral lower extremities. Confirmation level was performed with fluoroscopy for planning of the incision. The spine was then prepped and draped in sterile standard fashion including alcohol, ChloraPrep and Betadine scrub and paint. Operative timeout was performed. The incision was planned for: STAGE 2: C5-C6 PSF; C3-C7 laminoplasty; partial C2 and T1 laminectomy; RIGHT C3-C4, LEFT C4-C5, LEFT C6-C7 foraminotomy; open correction of fracture deformity. Skin was injected with 0.5% Marcaine with epinephrine. A 10 blade scalpel was then used to make a vertical longitudinal incision spanning the spinous processes from C2 to T1. Bovie cautery was used to deepen the incision through subcutaneous tissue and fascia down to the spinous processes from C2 to T1. A curet was then applied to the lamina and radiographs were taken to confirm vertebral level. After radiographic position was confirmed, the posterior elements from the inferior half of C2 to the superior half of T1 were exposed in subperiosteal fashion using Bovie cautery, Guillaume, curettes and rongeurs to skeletonize posterior elements, taking care to preserve all facet joint capsules and the overlying muscle attachments. Self-retaining retractors were then placed for exposure. Attention was then placed toward placement of instrumentation. The C5 and C6 lateral mass screws were planned. A remote pilot operator hole was drilled. The tract was then drilled in line with the facet approximately 45 degrees (1) medial to lateral and (2) inferior to superior. A ball-tip probe was placed to guarantee the screws were bi-cortical, but did not violate the sides of the drilled tract. The cortical bone was tapped. RIGHT C3-C4, LEFT C4-C5, LEFT C6-C7 foraminotomy was completed with a combination of curets, Kerrison rongeurs, matchstick drill through the length of the foramen with care not to disrupt more than one-third of the lateral mass. The LEFT approach C3-C7 laminoplasty was completed with matchstick drill, forming 2 troughs at the lateral border of the lamina from C3 to C4. The LEFT trough was complete through the cortex, and the opposite trough was partial-thickness to allow the hinge. Partial laminectomy at inferior C2 and superior T1 was completed. Specifically, the inferior C2 and superior lamina of T1 was removed while maintaining the interspinous ligament. These were performed with a matchstick drill, Kerrison rongeur, curets. Bone bleeding was stopped with bone wax again from pedicle to pedicle. The C5 and C6 lateral mass screws were then placed contralateral to the complete hinge. The screws were then connected using appropriately-sized rods of adequate length and with lordotic orientation. The screws were reduced to the rods to allow for open correction of deformity. Final tightening of setscrews was performed using appropriate instruments. C5-C6 arthrodesis was then performed contralateral to the complete hinge. The cortical bone and facets were decorticated. Morcellized autograft taken from the decompression and allograft (DBX) was used for the arthrodesis. The C3-C7 lamina was then hinged open on the LEFT, and appropriate-sized plates at C3-C7 were trialed, inserted and secured in standard fashion. The C5 and C6 lateral mass screws ipsilateral to the plates were then placed. The screws were then connected using appropriately-sized rods of adequate length and with lordotic orientation. The screws were reduced to the rods to allow for open correction of deformity. Final tightening of setscrews was performed using appropriate instruments. Laminar screws for the laminoplasty plates were then pre-drilled and placed. The central canal was visibly decompressed from pedicle to pedicle. The wound was copiously irrigated with bacitracin irrigation. Lateral radiograph was obtained to confirm appropriate placement of instrumentation. The wound was copiously irrigated with bacitracin irrigation. Hemostasis was achieved with bipolar electrocautery, thrombin-soaked Gelfoam and FloSeal. 1000 mg of vancomycin powder was then placed into the subfascial space. LEFT C5-C6 arthrodesis was then performed. The cortical bone and facets were decorticated. Morcellized autograft taken from the decompression and allograft (DBX) was used for the arthrodesis. Two 10-Filipino round slippery Hemovac drains were placed underneath the fascia. Closure was then commenced. The fascia was closed with 0 Vicryl in interrupted fashion in multiple layers. Dermis was closed with 2-0 Vicryl in interrupted fashion. Skin was approximated with skin parish. Medipore dressing was used to secure the dressing and drain. All needle and sponge counts were correct. There were no complications during the surgery. The patient was then carefully rolled supine onto a hospital bed. Patient's neurologic exam was stable from prior to surgery. Dr. Ceasar Sanchez was scrubbed and present for the critical portion of the procedure and available for all others. We discussed the case with the patient's family. All questions were answered. They were grateful for care. LOGUE LIBRARIAN [facility] 2024-07-30 07:49:00 NEUROSURGERY BRIEF POST OP NOTE Date: 07/30/2024 Patient's Name: Daphne Avitia : 1965 Admit Date: 07/29/2024 Admitting Provider: Ceasar Sanchez MD Age/Sex: 59 y.o. male Date of Procedure: 07/29/2024 - 07/30/2024 Primary Surgeon: * Ceasar Sanchez - Primary Resident Surgeon 1: Elizabeth Tyson MD Anesthesia Faculty: Anesthesiologist: Marilia Bragg DO Veneer Grader: Karishma Wilcox MD; Deisy Hercules MD Anesthesia Given: * No anesthesia type entered * Procedure: Stage 1: C5-6 ACDF Stage 2: C3-7 laminoplasty, C5-6 posterior spinal fusion, Right C3-4 foraminotomy, Left C4-5, C6-7 foraminotomy Preoperative Diagnosis: * No Diagnosis Codes entered * Postoperative Diagnosis: * No Diagnosis Codes entered * Fluids Out: - Estimated Blood Loss: 500 mL - Urine Output: 3000 mL Drains: 2x hemovac JESS drains posteriorly, no anterior drains Anticipated Return to the OR: No Operative Findings/Outcome: Specimen: None Findings: N/A Complications: None Elizabeth Tyson MD Cosigned by Ceasar Sanchez MD at 07/31/2024 6:33 AM CATALOGUE LIBRARIAN LOGUE LIBRARIAN LOGUE LIBRARIAN [facility] Notes Date/Time Note Provider Source Referral ID Status Reason Start Date Expiration Date V isits Requested Visits Authorized [id number] Pending Review 09/21/2024 03/20/2025 1 1 [id number] [place] [id number] 17:01:15Scheduled Orders Health Maintenance Due Date Last Done Comments CT Colonography 1965 Colonoscopy 1965 Colorectal Cancer Screening 1965 Diabetes: Hemoglobin A1C 1965 FIT-DNA 1965 FIT 1965 FOBT 1965 Lipid Panel 1965 Sigmoidoscopy 1965 Annual Physical 1967 Pneumococcal Vaccine: Pediat rics (0 to 5 Years) and At-Risk Patients (6 to 64 Years) (1 of 2 - PCV) 1970 Diabetes: Foot Exam 1974 Diabetes: Retinopathy Screening 1974 DTaP/Tdap/Td Vaccines (1 - Tdap) 1983 Diabetes: Urine Protein Screening 1983 Zoster Vaccines (1 of 2) 2014 Influenza Vaccine (#1) 2024 Respiratory Syncytial Virus (RSV) or >=60 (1 - Risk 60-74 years 1-dose series) 2024 HIB Vaccines Aged Out No longer eligi ble based on patient's age to complete this topic HPV Vaccines Aged Out No longer eligi ble based on patient's age to complete this topic Hepatitis A Vaccines Aged Out No long er eligible based on patient's age to complete this topic Hepatitis B Vaccines Aged Out No long er eligible based on patient's age to complete this topic IPV Vaccines Aged Out No longer eligi ble based on patient's age to complete this topic Meningococcal Vaccine Aged Out No latasha eulalia eligible based on patient's age to complete this topic Rotavirus Vaccines Aged Out No longer eligible based on patient's age to complete this topic [id number]15 [id number] 17:01:15 Diagnosis Fracture of neck, unspecifie d, initial encounter ([facility] ([facility]) [id number] 17:01:15 [facility] [id number] 17:55:51* * Auth/Cert (Routine) Specialty Diagnoses / Procedures Referred By Contac t Referred To Contact Diagnoses Closed fracture of cervical vertebra, unspecified cervical vertebral level, initial encounter ([facility]) ([facility]) 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 [place] [id number] [address] Phone: tel: fax: [facility] ([facility] [facility]) [address] [place] [id number] Phone: tel: Referral ID Status Reason Start Date Expiration Date Visits Re quested Visits Authorized [id number] 1 1 [id number] 17:55:51 [id number] 17:55:51* Over the past 2 weeks, how often have you been bothered by any of the following problems? Question Answer Date of Assessment Author Little interest or pleasure in doing things Not at all 08/01/2024 7:00 AM Lisa Arndt RN Feeling down, depressed, or hopeless Not at all 08/01/2024 7:00 AM Lisa Arndt RN Patient Health Questionnaire -2 Score 0 08/01/2024 7:00 AM Lisa Arndt RN * Calculated C-SSRS Risk Score (Lifetime/Recent) Answer Date of Assessment Author No Risk Indicated 07/29/2024 7:51 PM Alli Ortega RN * In the past month, have you... Question Answer Date of Assessment Author Had nightmares about the aleyda nts or thought about the events when you did not want to? No 08/01/2024 7:00 AM Lisa Arndt RN Tried hard not to think abou t the events or went out of your way to avoid situations that reminded you of the events? No 08/01/2024 7:00 AM Lisa Arndt RN Been constantly on guard, watchful, or easily startled? No 08/01/2024 7:00 AM Lisa Flores RN [place] numb or detached from p eople, activities, or your surroundings? No 08/01/2024 7:00 AM Lisa Cannon RN [place] guilty or unable to sto p blaming yourself or others for the events or any problems the events may have caused? No 08/01/2024 7:00 AM Lisa Arndt RN * [place] Suicide Severity Rating Scale (Screener/Recent Self-Report) Question Answer Date of Assessment Author 1. Wish to be (Past 1 Month) No 7:51 PM Alli Ortega RN 2. Non-Specific Active Suici gael Thoughts (Past 1 Month) No 07/29/2024 7:51 PM David Ortega RN 6. Suicidal Behavior (Lifetime) No 7:51 PM Alli Ortega RN * Primary Care PTSD Score Question Answer Date of Assessment Author Primary Care PTSD Total Score 1 08/01/2024 7:00 AM Lisa Arndt RN [id number] 17:55:51* Annette Barker RN - 08/06/2024 8:04 PM CATALOGUE LIBRARIAN CM informed patient patient is medically ready for discharge to home. Per patient she will be able take patient home on Wednesday. Patient seen for CAREGIVER training over the weekend. Commode chair- 3-N-1. Patient stated PT recommended a transport chair. Dr. Capps has been informed of this matter. LOGUE LIBRARIAN * Nisha Herrera PTA - 08/06/2024 11:30 AM CATALOGUE LIBRARIAN Treatment Session Note Patient Name: Kimberly Iqbal Today's Date: 08/06/2024 Preferred Language: [place]i Assessment & Plan Assessment: Pt seen for family training with assuming role as primary caregiver for the patient. Training emphasized bed mobility, sitting EOB, STS, standing tranfers to the chair and gait training in room. completed all tasks hands on and both patient/ express confidence in patient returning home. Plan: PT Discharge Recommendations: Inpatient rehab facility placement Kelly Massey RN cleared pt for skilled PT intervention. Pt received supine in bed, pt's visiting at b/s, pt pleasant and agreed to participate in treatment. Pt left supine in bed, pt in NAD, all needs in reach, RN notified of status/end of visit. Objective PT Last Visit PT Received On: 08/06/24 Activity Tolerance: Endurance: Tolerates 10 - 20 min exercise with multiple rests Cognition Orientation Level: Oriented X4 Treatment Therapeutic activity: Therapeutic Activity Therapeutic Activity Time Entry: 30 Therapeutic Activity 1: Static sitting balance Therapeutic Activity 2: Static standing balance Therapeutic Activity 3: Side steps @ EOB Therapeutic Activity 4: Bed to chair transfers Therapeutic Activity 5: Gait training in room Bed Mobility: Bed Mobility 1: Level of Assistance 1: Partial/Mod assistance Bed Mobility To/From: Roll left/right, Sitting EOB to supine, Supine to sit on EOB Assistive Devices And Adaptive Equipments: Bed rail Transfers: Transfers 1: Technique 1: Via walking, Stand pivot Level of Assistance 1: Partial/Mod assistance Transfer To/From: Bed, Chair Assistive Devices And Adaptive Equipments: No device Gait training: Gait Training Time Entry: 18 Gait Training Activity 1: Distance (enter in feet): 25 Gait Training Activity 1: Indoor surface Assistive Devices And Adaptive Equipments: No device Gait Training Activity 1 Comment: Chair follow for safety AM-PAC Basic Mobility: AM-PAC Basic Mobility Inpatient Turning in bed without bedrails: A Little Lying on back to sitting on edge of flat bed: A Lot Bed to chair: A Little Standing up from chair: A Little Walk in room: A Lot Climbing 3-5 stairs: A Lot Mobility Inpatient Raw Score: 15 JH-HLM Goal: 4 Mobility: Highest Level of Mobility Performed (JH-HLM) JH-HLM Goal: 4 Goals: Encounter Goals Encounter Goals (Active) Pt will perform bed mobility with LRAD with SBA assistance. Start: 07/31/24 Expected End: 08/25/24 Patient will perform transfers using LRAD with SB assistance to improve functional mobility. Start: 07/31/24 Expected End: 08/25/24 Patient will perform gait training with SBA using LRAD for >100ft. Start: 07/31/24 Expected End: 08/25/24 Treatment Note: If this is the last documented treatment, then it will signify discharge from acute care prior to discharge from the therapy service and will serve as the discharge summary. Nisha Herrera PTA LOGUE LIBRARIAN * DAREN Dietz - 08/05/2024 4:15 PM CATALOGUE LIBRARIAN Occupational Therapy Treatment Session Note Patient Name: Kimberly Iqbal Today's Date: 08/05/2024 Preferred Language: Bahraini Assessment & Plan Pt remains motivated to progress with therapy, showing improve stability/understanding for log rolling technique, allowing for decreased assistance for bed mobility. He remains HIGH fall risk during standing ADL's and functional transfers 2/2 frequent c/o dizziness while upright. He demonstrates deficits in strength/proprioceptive awareness of RUE when engaged in bimanual ADL task, often using RUE as stabilizer. May benefit from cont OT services to address deficits and maximize functional capabilities. Assessment: OT Assessment Results: Impaired ADL status, Impaired upper extremity range of motion, Impaired upper extremity strength, Impaired right upper extremity Prognosis: Excellent Strengths: Ability to acquire knowledge, Attitude of self, Support and attitude of living partners, Premorbid level of function Plan: Treatment Plan/Goals Established with Patient/Caregiver: Yes Treatment Interventions: ADL retraining, Endurance training, Functional transfer training, Neuromuscular reeducation, Patient/family training OT Plan: Skilled OT OT Frequency: 3-4 times per week until discharge OT Discharge Recommendations: Inpatient rehab facility placement Equipment Recommended: Commode chair- 3-N-1 OT Duration: Discharge Subjective Pt expresses improved understanding for positioning of his hips in bed to allow for improved support of low back while laying in bed. General Visit Information: Family/Caregiver Present: Yes OBJECTIVE Pt found in bed upon arrival, present, and agrees to therapy. Pt seen to improve upright tolerance, functional mobility, and ADL completion. Pt and educated on log rolling technique, with therapist supporting RUE when reaching across midline, pt is then able to roll towards L side. He is then able to kick LE out of bed and transition to sitting upright MOD A -- therapist present to facilitate trunk movement while pt trials lateral pushup with LUE -- completed 3 reps. Pt completed forward scooting to position himself into high perch position. Pt endorsing 8/10 dizziness, assisted to standing to complete side steps towards HOB. Pt and educated on importance of ensure pt hips are high in bed before completing log roll back to bed. Pt verbalizes improved comfort in bed with hips above marker. Pt engages in bimanual NMR per grid. Emphasis on using RUE as stabilizer. Pt left in bed, needs met, and RN notified. Mobility/Transfers: Bed Mobility Bed Mobility Bed Mobility: Yes Bed Mobility 1 Level of Assistance 1: Partial/Mod assistance Bed Mobility Comments 1: utilized log rolling technique Bed Mobility To/From: Roll lying on back to right, Supine to sit on EOB Bed Mobility 2 Level of Assistance 2: Partial/Mod assistance Bed Mobility Comments 2: utilizing log rolling technique Bed Mobility To/From: Sitting EOB to supine Transfer Sit to stand and side steps with touching assistance Treatment Balance/Neuromuscular Re-education Neuromuscular Re-Education Time Entry: 38 Balance/Neuromuscular Re-Education Activity 1: Utilizing RUE into bimanual task Position 1: Seated Balance/Neuromuscular Re-Education Activity 2: Sitting at EOB, core strengthening exercises Position 2: Seated Balance/Neuromuscular Re-Education Activity 3: Standing/side steps Position 3: Standing AM-PAC Daily Activity: Putting on and taking off regular lower body clothing: Total Bathing (including washing, rinsing, drying): A Lot Toileting, which includes using toilet, bedpan or urinal: A Lot Putting on and taking off regular upper body clothing: A Lot Taking care of personal grooming such as brushing teeth: A Little Eating Meals: A Little AM-PAC Daily Activity Raw Score: 13 Patient Education:Pt and educated on use of hip position icon on bed to allow for optimal position of pt before raising foot/head of bed to allow for proper support of low back -- able to return demonstration. Educated on importance of incorporating purposeful/meaningful activities into HEP to maximize functional capabilities. Goals:Encounter Goals Encounter Goals (Active) Patient will perform grooming with no device using his dominant R hand , withmin assist for improved independence with ADLs (Progressing) Start: 07/31/24 Expected End: 08/14/24 STG - Patient will perform toilet transfer min A stand step to BSC (Progressing) Start: 07/31/24 Expected End: 08/14/24 LTG - Patient will complete upper body dressing with set up sitting EOB (Progressing) Start: 07/31/24 Expected End: 08/07/24 STG - Patient will transfer sit to and from stand min A in prep for OOBmobility (Progressing) Start: 07/31/24 Expected End: 08/07/24 Pt will increase fishing captain strength on right UE by at least 5 pounds in order to increase strength for ADL/IADL tasks. (Progressing) Start: 07/31/24 Expected End: 08/14/24 Supervising Occupational Therapist: GEORGE Ramírez Treatment Note: If this is the last documented treatment, then it will signify discharge from acute care prior to discharge from the therapy service and will serve as the discharge summary. Blake Dietzectronically signed by DAREN Dietz at 08/05/2024 4:24 PM CATALOGUE LIBRARIAN * Siobhan Castellanos, NIKKY - 08/05/2024 10:00 AM CATALOGUE LIBRARIAN Treatment Session Note Patient Name: Kimberly Iqbal Today's Date: 08/05/2024 Preferred Language: [place]raini Assessment & Plan PT will cont to follow for FT. Subjective JAYLEN Massey approved PT. Pt agreeable to tx. Pain: Pain Assessment: DVPRS (08/05/2024 4:00 AM) Pain Score: 4 (08/05/2024 4:00 AM) Pain Type: Surgical pain (08/05/2024 3:01 AM) Pain Location: Shoulder (08/05/2024 3:01 AM) Pain Orientation: Posterior (08/05/2024 3:01 AM) Pain Descriptors: Discomfort (08/04/2024 9:03 PM) Pain Frequency: Constant/continuous (08/04/2024 9:03 PM) Objective General Visit Information: Treatment Other activity Education provided on SCI recovery and BP issues that can arise with SCI and hypotension. Discussed caregiver safety when mobilizing pt OOB. Pt prior to PT arrival mobilized c MERCEDES and pt - pt became dizzy and had to return supine. Pt cont to c/o dizziness on K[employer] arrival so OOB mobility was deferred. is eager to assist and asks appropriate questions. Post-Therapy Checklist: Pt supine in bed, HOB elevated >30 degrees, Bed/chair alarm on, Family/visitor(s) at bedside, All lines/lead intact, Vital signs stable, and RN informed/aware AM-PAC Basic Mobility: AM-PAC Basic Mobility Inpatient Turning in bed without bedrails: A Little Lying on back to sitting on edge of flat bed: A Little Bed to chair: A Lot Standing up from chair: A Lot Walk in room: A Lot Climbing 3-5 stairs: Total Mobility Inpatient Raw Score: 13 -[facility] Goal: 4 Patient Education: Education Documentation No documentation found. Education Comments No comments found. Goals: Encounter Goals Encounter Goals (Active) Pt will perform bed mobility with LRAD with SBA assistance. Start: 07/31/24 Expected End: 08/25/24 Patient will perform transfers using LRAD with SB assistance to improve functional mobility. Start: 07/31/24 Expected End: 08/25/24 Patient will perform gait training with SBA using LRAD for >100ft. Start: 07/31/24 Expected End: 08/25/24 Supervising Physical Therapist: Cecilia Barker PT, DPT Treatment Note: If this is the last documented treatment, then it will signify discharge from acute care prior to discharge from the therapy service and will serve as the discharge summary. Siobhan Castellanos PTA LOGUE LIBRARIAN * Siobhan Neves NP - 08/04/2024 12:30 PM CATALOGUE LIBRARIAN NEUROSURGERY PROGRESS NOTE: Date: 08/04/24 Patients Name: Kimberly Iqbal Admit Date: 07/29/2024 Admitting Provider: Ceasar Sanchez MD : 1965 Service: Neurosurgery Trauma Team Age/Sex: 59 y.o. male Active Problems: Principal Problem: Closed fracture of cervical vertebra, unspecified cervical vertebral level, initial encounter (CMS/HCC) (HCC) Active Problems: HTN (hypertension) Diabetes mellitus, type 2 (HCC) SUBJECTIVE: NAEON OBJECTIVE: Vitals: Vitals: 08/04/24 1000 08/04/24 1032 08/04/24 1100 08/04/24 1120 BP: 173/82 153/72 Pulse: 62 64 65 71 Resp: 22 25 23 Temp: SpO2: 96% 95% I/O: Intake/Output Summary (Last 24 hours) at 08/04/2024 [id number] data filed at 08/03/2024 1600 Gross per 24 hour Intake -- Output 20 ml Net -20 ml PHYSICAL EXAM: STRENGTH Right Left Deltoid (C5, 6) 1/4 Bicep (C5, 6) 3/4 Triceps (C7, 8) 3/4 Wrist Ext (C6) 3/4 Finger Abd (C8, T1) 3/[address] Foreman (C8, T1) 4-/5 Iliopsoas/Hip Flex (L2, 3) 5/5 Quadriceps (L3, 4) 5/5 Hamstrings (S1, 2) 5/5 Dorsiflexion (L4, 5) 5/5 Gastroc (S1, S2) 5/5 EHL 5/5 LABS/IMAGING:Labs: UA WBC Date Value Ref Range Status 07/29/2024 <1 0 - 5 /HPF Final HgbDate Value Ref Range Status 08/04/2024 12.3 (L) 12.4 - 17.4 g/dL Final POC A Hct (calc)Date Value Ref Range Status 07/30/2024 34.0 (L) 40.1 - 51.0 % Final HctDate Value Ref Range Status 08/04/2024 36.8 (L) 37.1 - 50.8 % Final Plt CountDate Value Ref Range Status 08/04/2024 271 160 - 381 10*3/uL Final POC A NaDate Value Ref Range Status 07/30/2024 139 135 - 145 mEq/L Final Sodium LvlDate Value Ref Range Status 08/04/2024 139 136 - 145 mEq/L Final POC A KDate Value Ref Range Status 07/30/2024 4.2 3.5 - 5.1 mEq/L Final Potassium LvlDate Value Ref Range Status 08/04/2024 3.9 3.4 - 4.5 mEq/L Final Creatinine LvlDate Value Ref Range Status 08/04/2024 0.73 0.7 - 1.30 mg/dL Final Prothrombin Time (PT)Date Value Ref Range Status 07/30/2024 16.1 (H) 12 - 14.7 Seconds Final PTTDate Value Ref Range Status 07/30/2024 29.9 22.9 - 35.8 Seconds Final Activated Clotting Time (TEG) RapidDate Value Ref Range Status 07/29/2024 113 86 - 118 sec Final Radiology Imaging Reviewed: - I have personally reviewed all pertinent NSGY imaging studies ASSESSMENT AND PLAN:Assessment: Daphne Avitia is a 59 y.o. male with PMH of DM and HTN presents after [facility]DC unhealmeted. NSGY consulted for CT cervical spine finding of C1 right posterior arch fracture, C2 hangman fracture coronally oriented with fracture line going through transverse foramen, C5 right pedicle fracture. CTA head/neck show right vertebral artery g2 BCVI at the level of C2-3. CT head negative. Patient complains of allodynia of bilateral shoulder and collar bone, and right arm numbness and weakness. No antiplatelet anticoagulant use. Impression: - shoulder allodynia bilaterally - C1 posterior arch fx, C2 coronal oriented fx, C5 R lamina fx - g2 BCVI R vert - s/p C3-7 laminoplasty with C5/6 ACDF / PSF Plan:- POD 5 - On ASA 325 for vert injury - MAP goals completed - Drains removed - Will downgrade to 5J - PT/OT, maintain [place] J cervical collar at all times -- Pt having episodes of low BP and fainting with standing during PT, will call OPA to correct collar and adjust medications - Pain control multi modal - DVT ppx: enoxaparin - 60 mg/0.6mL, anti Xa pending Dispo: Home w family pending family teaching Please page [phone] with any questions Siobhan Neves [facility] LOGUE LIBRARIAN * Carrol Hampton, OT - 08/04/2024 11:30 AM CATALOGUE LIBRARIAN Occupational Therapy Treatment Session Note Patient Name: Kimberly Iqbal Today's Date: 08/04/2024 Preferred Language: [place]raini Admit Date: 07/29/2024 Precautions: fall, safety, standard/universal Treatment: Pt was assisted with RN and tech help from ICU bed to new bed within pts hospital room with total A. Pt's BP recorded supine in bed at 144/70 mmHg and performed supine-EOB with Mod A and HOB elevated. Pt continues to demonstrated limited strength and AROM in RUE. Patient was re-educated on Manpreet for BUEs strength and improved functional activity tolerance. Pt verbalized understanding. Pt sat EOB with good static sitting balance and BP recorded at 156/84 mmHg after ~1 minute pt reported feeling dizzy and requested to return to supine position in bed. Pt was left with all lines and leads intact and all needs met. RN notified of session. AM-PAC Daily Activity:AM-PAC Daily Activity Inpatient Putting on and taking off regular lower body clothing: A Lot Bathing (including washing, rinsing, drying): A Lot Toileting, which includes using toilet, bedpan or urinal: A Lot Putting on and taking off regular upper body clothing: A Lot Taking care of personal grooming such as brushing teeth: A Lot Eating Meals: A Little AM-PAC Daily Activity Raw Score: 13 Bed Mobility:Bed Mobility Bed Mobility: Yes Bed Mobility 1 Level of Assistance 1: Partial/Mod assistance Bed Mobility To/From: Supine to sit on EOB, Sitting EOB to supine Assistive Devices And Adaptive Equipments: Bed rail, Head of bed elevated Mobility/Transfers:Bed Mobility Bed Mobility: Yes Bed Mobility 1 Level of Assistance 1: Partial/Mod assistance Bed Mobility To/From: Supine to sit on EOB, Sitting EOB to supine Assistive Devices And Adaptive Equipments: Bed rail, Head of bed elevated Plan:Treatment Plan/Goals Established with Patient/Caregiver: Yes Treatment Interventions: ADL retraining, Endurance training, Functional transfer training, Neuromuscular reeducation, Patient/family training OT Plan: Skilled OT OT Frequency: 3-4 times per week until discharge OT Discharge Recommendations: Inpatient rehab facility placement Equipment Recommended: Commode chair- 3-N-1, DME wheelchair, Shower bath chair OT Duration: Discharge Goals:Encounter Goals Encounter Goals (Active) Patient will perform grooming with no device using his dominant R hand , withmin assist for improved independence with ADLs (Progressing) Start: 07/31/24 Expected End: 08/14/24 STG - Patient will perform toilet transfer min A stand step to BSC (Progressing) Start: 07/31/24 Expected End: 08/14/24 LTG - Patient will complete upper body dressing with set up sitting EOB (Progressing) Start: 07/31/24 Expected End: 08/07/24 STG - Patient will transfer sit to and from stand min A in prep for OOBmobility (Progressing) Start: 07/31/24 Expected End: 08/07/24 Pt will increase fishing captain strength on right UE by at least 5 pounds in order to increase strength for ADL/IADL tasks. (Progressing) Start: 07/31/24 Expected End: 08/14/24 Treatment Note: If this is the last documented treatment, then it will signify discharge from acute care prior to discharge from the therapy service and will serve as the discharge summary. Carrol Hampton, ABIOLA LOGUE LIBRARIAN * Leodan Kearns, PT - 08/04/2024 10:00 AM CATALOGUE LIBRARIAN Physical Therapy Treatment Session Note Patient Name: Kimberly Iqbal Today's Date: 08/04/2024 Preferred Language: [place]raini Assessment & Plan Pt was seen for PT with focus on bed mobility and transfers. Spouse at bedside assisting with all transfers. Pt with improvement with mobility today. Pt requiring decreased assistance for bed mobility and transfers once new C collar placed and once pain medication changed. Pt continues to be limited by dizziness and lightheadedness, though improvement from yesterday. Pt continues to benefit from skilled PT during acute care stay. Assessment: Prognosis: Good Evaluation/Treatment Tolerance: Patient tolerated treatment well Medical Staff Made Aware: Yes Plan: Treatment Plan/Goals Established with Patient/Caregiver: Yes Treatment/Interventions: Balance training, Bed mobility training, Caregiver training, Equipment training, Functional activities, Gait training, Manual therapy, Neuromuscular re-education, Orthotic training, Pain management, Patient education, Positioning, Posture/Body mechanics baring, Stair training, Therapeutic exercises, Transfer training, Wheelchair assessment and management PT Plan: Skilled PT PT Frequency: 3-5 times per week until discharge PT Discharge Recommendations: Inpatient rehab facility placement Subjective Precautions: Medical Precautions: fall, spine Post-Surgical Precautions: Spinal precautions Braces Applied: JAMUL J COLLAR ON AT ALL TIMES Pain: Pain Assessment: DVPRS (08/04/2024 12:00 PM) Pain Score: 0 (08/04/2024 12:00 PM) Pain Type: Acute pain (08/04/2024 10:32 AM) Pain Location: Neck (08/04/2024 10:32 AM) Pain Descriptors: Aching; Burning (08/04/2024 10:32 AM) Pain Frequency: Intermittent (08/04/2024 10:32 AM) Objective General Visit Information: PT Last Visit PT Received On: 08/04/24 General Family/Caregiver Present: Yes Cognition Overall Cognitive Status: Within Functional Limits Behavior/Cognition: Alert, Cooperative, Pleasant mood Treatment Therapeutic activity: Therapeutic Activity Therapeutic Activity Time Entry: 25 Therapeutic Activity 1: Elevated HOB to acclimate for further treatment Therapeutic Activity 2: Sitting EOB ~8min CGA Bed Mobility: Bed Mobility 1: Bed Mobility To/From: Other (Scooting superiorly in bed TotalA) Bed Mobility 2: Level of Assistance 2: Partial/Mod assistance, Substantial/Max assistance Bed Mobility Comments 2: ModA for Supine to sit, MaxA for sit to supine Bed Mobility To/From: Supine to sit on EOB, Sitting EOB to supine Bed Mobility 3: Level of Assistance 3: Partial/Mod assistance Bed Mobility Comments 3: BELT OPERATOR Bed Mobility To/From: Supine to sit on EOB, Sitting EOB to supine Transfers: Transfers 1: Technique 1: Stand step Level of Assistance 1: Partial/Mod assistance ([place]) Trials/Comments 1: BELT OPERATOR Transfer To/From: Bed, Chair Assistive Devices And Adaptive Equipments: No device Transfers 2: Technique 2: Stand step Level of Assistance 2: Partial/Mod assistance Trials/Comments 2: BELT OPERATOR, [place] Transfer To/From: Chair, Bed Assistive Devices And Adaptive Equipments: No device AM-PAC Basic Mobility: AM-PAC Basic Mobility Inpatient Turning in bed without bedrails: A Little Lying on back to sitting on edge of flat bed: A Lot Bed to chair: A Lot Standing up from chair: A Lot Walk in room: A Lot Climbing 3-5 stairs: A Lot Mobility Inpatient Raw Score: 13 JH-HLM Goal: 4 Mobility: Highest Level of Mobility Performed (JH-HLM) JH-HLM Goal: 4 Patient Education: Education Documentation No documentation found. Education Comments No comments found. Goals: Encounter Goals Encounter Goals (Active) Pt will perform bed mobility with LRAD with SBA assistance. Start: 07/31/24 Expected End: 08/25/24 Patient will perform transfers using LRAD with SB assistance to improve functional mobility. Start: 07/31/24 Expected End: 08/25/24 Patient will perform gait training with SBA using LRAD for >100ft. Start: 07/31/24 Expected End: 08/25/24 Treatment Note: If this is the last documented treatment, then it will signify discharge from acute care prior to discharge from the therapy service and will serve as the discharge summary. Leodan Kearns PT LOGUE LIBRARIAN * Ceasar Sanchez MD - 08/03/2024 6:32 PM CATALOGUE LIBRARIAN NEUROSURGERY PROGRESS NOTE: Date: 08/03/24 Patients Name: Kimberly Iqbal Admit Date: 07/29/2024 Admitting Provider: Ceasar Sanchez MD : 1965 Service: Neurosurgery Trauma Team Age/Sex: 59 y.o. male Active Problems: Principal Problem: Closed fracture of cervical vertebra, unspecified cervical vertebral level, initial encounter (CMS/HCC) (HCC) Active Problems: HTN (hypertension) Diabetes mellitus, type 2 (HCC) SUBJECTIVE: NAEON OBJECTIVE: Vitals: Vitals: 08/03/24 1610 08/03/24 1700 08/03/24 1710 08/03/24 1800 BP: 176/86 176/82 157/74 164/78 Pulse: 60 65 64 64 Resp: Temp: SpO2: 97% 96% 97% 96% I/O: Intake/Output Summary (Last 24 hours) at 08/03/2024 1832Last data filed at 08/03/2024 1600 Gross per 24 hour Intake -- Output 500 ml Net -500 ml PHYSICAL EXAM: STRENGTH Right Left Deltoid (C5, 6) 1/4 Bicep (C5, 6) 3/4 Triceps (C7, 8) 3/4 Wrist Ext (C6) 3/4 Finger Abd (C8, T1) 3/[address] Fore[address] (C8, T1) 4-/5 Iliopsoas/Hip Flex (L2, 3) 5/5 Quadriceps (L3, 4) 5/5 Hamstrings (S1, 2) 5/5 Dorsiflexion (L4, 5) 5/5 Gastroc (S1, S2) 5/5 EHL 5/5 LABS/IMAGING:Labs: UA WBC Date Value Ref Range Status 07/29/2024 <1 0 - 5 /HPF Final HgbDate Value Ref Range Status 08/03/2024 11.3 (L) 12.4 - 17.4 g/dL Final POC A Hct (calc)Date Value Ref Range Status 07/30/2024 34.0 (L) 40.1 - 51.0 % Final HctDate Value Ref Range Status 08/03/2024 34.8 (L) 37.1 - 50.8 % Final Plt CountDate Value Ref Range Status 08/03/2024 221 160 - 381 10*3/uL Final POC A NaDate Value Ref Range Status 07/30/2024 139 135 - 145 mEq/L Final Sodium LvlDate Value Ref Range Status 08/03/2024 143 136 - 145 mEq/L Final POC A KDate Value Ref Range Status 07/30/2024 4.2 3.5 - 5.1 mEq/L Final Potassium LvlDate Value Ref Range Status 08/03/2024 3.2 (L) 3.4 - 4.5 mEq/L Final Creatinine LvlDate Value Ref Range Status 08/03/2024 0.63 (L) 0.7 - 1.30 mg/dL Final Prothrombin Time (PT)Date Value Ref Range Status 07/30/2024 16.1 (H) 12 - 14.7 Seconds Final PTTDate Value Ref Range Status 07/30/2024 29.9 22.9 - 35.8 Seconds Final Activated Clotting Time (TEG) RapidDate Value Ref Range Status 07/29/2024 113 86 - 118 sec Final Radiology Imaging Reviewed: - I have personally reviewed all pertinent NSGY imaging studies ASSESSMENT AND PLAN:Assessment: Daphne Avitia is a 59 y.o. male with PMH of DM and HTN presents after [facility]DC unhealmeted. NSGY consulted for CT cervical spine finding of C1 right posterior arch fracture, C2 hangman fracture coronally oriented with fracture line going through transverse foramen, C5 right pedicle fracture. CTA head/neck show right vertebral artery g2 BCVI at the level of C2-3. CT head negative. Patient complains of allodynia of bilateral shoulder and collar bone, and right arm numbness and weakness. No antiplatelet anticoagulant use. Impression: - shoulder allodynia bilaterally - C1 posterior arch fx, C2 coronal oriented fx, C5 R lamina fx - g2 BCVI R vert - s/p C3-7 laminoplasty with C5/6 ACDF / PSF Plan:-POD4 -okay to start aspirin -MAP > 85, automapping -drains removed -ok for downgrade to 4J NVICU -pt/ot -pain control multi modal -continue MJ collar at all times for c2 fracture -lvx for DVT ppx Please page [phone] with any questions [place] Rothman [facility] Neurosurgery I saw this patient and agree with plan Ceasar Moratayaectronically signed by [place] Rothman MD at 08/03/2024 6:33 PM CATALOGUE LIBRARIAN LOGUE LIBRARIAN * Grace Issa OT - 08/03/2024 2:30 PM CATALOGUE LIBRARIAN Treatment Session Note Patient Name: Kimberly Iqbal Today's Date: 08/03/2024 Preferred Language: [place]i Assessment & Plan Pt is very motivated and continuing tx for EOB/OOB activity . Pt is improving with bed mobility from max to mod/min A today using side rail of bed. His sitting balance is good except that SBP drops 40-50 points with pt becoming dizzy, diaphoretic. Pt wanting to keep trying so return him to supine in between to have his sx go away before trying it again. Able to do some sit to stands today though again limited by orthostatic hypotension. Initiated some family training including pad exchange on collar/washing instructions and RUE AAROM ex . Assessment: OT Assessment Results: Impaired ADL status, Impaired upper extremity range of motion, Impaired upper extremity strength, Impaired endurance, Impaired functional mobility, Impaired right upper extremity Prognosis: Good Evaluation/Treatment Tolerance: Patient tolerated treatment well Medical Staff Made Aware: Yes Precautions: UE Weight Bearing Status: FWB LE Weight Bearing Status: FWB Medical Precautions: MAP goals >80, fall, spine Post-Surgical Precautions: spine prec Braces Applied: JAMUL J COLLAR ON AT ALL TIMES Plan: Treatment Plan/Goals Established with Patient/Caregiver: Yes Treatment Interventions: ADL retraining, Endurance training, Functional transfer training, Neuromuscular reeducation, Patient/family training OT Plan: Skilled OT OT Frequency: 3-4 times per week until discharge OT Discharge Recommendations: Inpatient rehab facility placement Equipment Recommended: Commode chair- 3-N-1, DME wheelchair, Shower bath chair OT Duration: Discharge Subjective " Let me try again" Current Problem: Pain: Yes in neck Objective Vital Signs: BP drops when in upright position General Visit Information: Family/Caregiver Present: Yes Self Care (ADL):Eating Assistance: Supervision/touching assistance Grooming Assistance: Partial/Mod assistance Bathing Assistance: Substantial/Max assistance UE Dressing Assistance: Partial/Mod assistance LE Dressing Assistance: Substantial/Max assistance Toileting Assistance: Substantial/Max assistance ADL Comments: aDL limited due to severe orthostatic hypotension so decr tolerance for EOB/OOB. has RUE paresis Mobility/Transfers:Bed Mobility Bed Mobility Bed Mobility: Yes Bed Mobility 1 Level of Assistance 1: Partial/Mod assistance Bed Mobility Comments 1: 3 trials to work on tolerance and close BP monitoring Bed Mobility To/From: Supine to sit on EOB Assistive Devices And Adaptive Equipments: Bed rail Bed Mobility 2 Level of Assistance 2: Supervision/touching assistance Bed Mobility To/From: Sitting EOB to supine Assistive Devices And Adaptive Equipments: Bed rail, Head of bed elevated TransferTransfers Transfer: Yes Transfer 1 Level of Assistance 1: Partial/Mod assistance Trials/Comments 1: min A 3 trials with supine rest breaks in between due to hypotensive episodes Transfer To/From: [id number]-kv-Sfumu/Erqlb-wc-Tmf Assistive Devices And Adaptive Equipments: Bed rail Functional Mobility Treatment Self-Care: Eating Assistance: Supervision/touching assistance Grooming Assistance: Partial/Mod assistance Bathing Assistance: Substantial/Max assistance UE Dressing Assistance: Partial/Mod assistance LE Dressing Assistance: Substantial/Max assistance Toileting Assistance: Substantial/Max assistance ADL Comments: aDL limited due to severe orthostatic hypotension so decr tolerance for EOB/OOB. has RUE paresis Bed Mobility:Bed Mobility Bed Mobility: Yes Bed Mobility 1 Level of Assistance 1: Partial/Mod assistance Bed Mobility Comments 1: 3 trials to work on tolerance and close BP monitoring Bed Mobility To/From: Supine to sit on EOB Assistive Devices And Adaptive Equipments: Bed rail Bed Mobility 2 Level of Assistance 2: Supervision/touching assistance Bed Mobility To/From: Sitting EOB to supine Assistive Devices And Adaptive Equipments: Bed rail, Head of bed elevated Transfers:Transfers Transfer: Yes Transfer 1 Level of Assistance 1: Partial/Mod assistance Trials/Comments 1: min A 3 trials with supine rest breaks in between due to hypotensive episodes Transfer To/From: Gii-qa-Ansxw/Hxhaa-uh-Epu Assistive Devices And Adaptive Equipments: Bed rail Therapeutic ActivityTherapeutic Activity Time Entry: 45 Therapeutic Activity 1: EOB sitting tolerance with hypotension. dropping 20-30 with dizziness and diaphoresis. needing to return to supine and rest/recover his BP Therapeutic Activity 2: sit to stand . more orthostatic and 2 person assist for safery. able to take a side step for 3 trials . supine rests in between Therapeutic Activity 3: went over pad exchange/ cleaning pads with having her complete. AM-PAC Daily Activity:Putting on and taking off regular lower body clothing: A Lot Bathing (including washing, rinsing, drying): A Lot Toileting, which includes using toilet, bedpan or urinal: A Lot Putting on and taking off regular upper body clothing: A Lot Taking care of personal grooming such as brushing teeth: A Lot Eating Meals: A Little AM-PAC Daily Activity Raw Score: 13 MobilityHighest Level of Mobility Performed (JH-HLM): Static standing (1 or more minutes) Outcome Measures: Patient Education:Education Documentation No documentation found. Education Comments No comments found. Goals:Encounter Goals Encounter Goals (Active) Patient will perform grooming with no device using his dominant R hand , withmin assist for improved independence with ADLs Start: 07/31/24 Expected End: 08/14/24 STG - Patient will perform toilet transfer min A stand step to BSC Start: 07/31/24 Expected End: 08/14/24 LTG - Patient will complete upper body dressing with set up sitting EOB Start: 07/31/24 Expected End: 08/07/24 STG - Patient will transfer sit to and from stand min A in prep for OOBmobility Start: 07/31/24 Expected End: 08/07/24 Pt will increase fishing captain strength on right UE by at least 5 pounds in order to increase strength for ADL/IADL tasks. Start: 07/31/24 Expected End: 08/14/24 Treatment Note: If this is the last documented treatment, then it will signify discharge from acute care prior to discharge from the therapy service and will serve as the discharge summary. Grace Issa OT LOGUE LIBRARIAN * Leodan Kearns, PT - 08/03/2024 1:30 PM CATALOGUE LIBRARIAN Physical Therapy Treatment Session Note Patient Name: Kimberly Iqbal Today's Date: 08/03/2024 Preferred Language: Bahraini Assessment & Plan Pt was seen for PT with focus on bed mobility and transfers. Pt continues to become lightheaded and dizzy with mobility. Pt with positive orthostatic hypotension with sitting EOB and standing. Pt able to progress to standing today, though unable to mobilize further as pt feeling like he is about to "pass out." Pt does become pale and diaphoretic and with increased pain with mobility. Pt's mobility is limited by lightheadedness and pain. Pt continues to benefit from skilled PT during acute care stay. Pt is very motivated and has capacity to return to functional independence. Pt may benefit from INTENSE post acute inpatient rehabilitation. Assessment: Prognosis: Good Evaluation/Treatment Tolerance: Patient tolerated treatment well Medical Staff Made Aware: Yes Plan: Treatment Plan/Goals Established with Patient/Caregiver: Yes Treatment/Interventions: Balance training, Bed mobility training, Caregiver training, Equipment training, Functional activities, Gait training, Manual therapy, Neuromuscular re-education, Orthotic training, Pain management, Patient education, Positioning, Posture/Body mechanics baring, Stair training, Therapeutic exercises, Transfer training, Wheelchair assessment and management PT Plan: Skilled PT PT Frequency: 3-5 times per week until discharge PT Discharge Recommendations: Inpatient rehab facility placement Subjective Precautions: Medical Precautions: (Fall, standard) Post-Surgical Precautions: Spinal precautions Braces Applied: Candi Pain: Pain Assessment: 0-10 (08/03/2024 1:30 PM) Pain Score: 0 (08/04/2024 4:00 AM) Objective General Visit Information: PT Last Visit PT Received On: 12/19/24 General Family/Caregiver Present: Yes Cognition Overall Cognitive Status: Within Functional Limits Behavior/Cognition: Alert, Pleasant mood Orientation Level: Oriented X4 Treatment Bed Mobility: Bed Mobility 1: Level of Assistance 1: Partial/Mod assistance Bed Mobility Comments 1: 3 trials Bed Mobility To/From: Supine to sit on EOB, Sitting EOB to supine Assistive Devices And Adaptive Equipments: Bed rail Transfers: Transfers 1: Level of Assistance 1: Partial/Mod assistance Trials/Comments 1: [place] 2 trials Transfer To/From: Qfu-uh-Zruct/Ebwuy-iu-Jid Assistive Devices And Adaptive Equipments: Bed rail Gait Training Activity 1: Distance (enter in feet): Lateral steps EOB Assistive Devices And Adaptive Equipments: No device Level of Assistance 1: Partial/Mod assistance Gait Training Activity 1 Comment: BELT OPERATOR AM-PAC Basic Mobility: AM-PAC Basic Mobility Inpatient Turning in bed without bedrails: A Little Lying on back to sitting on edge of flat bed: A Lot Bed to chair: A Lot Standing up from chair: A Little Walk in room: A Lot Climbing 3-5 stairs: A Lot Mobility Inpatient Raw Score: 14 JH-HLM Goal: 4 Mobility: Highest Level of Mobility Performed (JH-HLM) JH-HLM Goal: 4 Highest Level of Mobility Performed (JH-HLM): Static standing (1 or more minutes) Patient Education: Education Documentation No documentation found. Education Comments No comments found. Goals: Encounter Goals Encounter Goals (Active) Pt will perform bed mobility with LRAD with SBA assistance. Start: 07/31/24 Expected End: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 PGY-1 Clinical Impression Dx: 1. Closed fracture of cervical vertebra, unspecified cervical vertebral level, initial encounter ([facility]) ([facility]) 2. 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 Additionally, I was directly involved in the management of the patient. Impression: 1. Closed fracture of cervical vertebra, unspecified cervical vertebral level, initial encounter ([facility]) ([facility]) 2. 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 Traylor. Diandra Cortés MD [facility]
[2024-10-17] MEDS ORDERED: activated charcoaL 25 GM/120 ML TUBE ONE (00:30)
[2024-10-17] MEDS ORDERED: NA CHLORIDE 0.9% 1,000 ML ONE (00:30)
[2024-10-17] MEDS ORDERED: ACTIVATED CHARCOAL 50 GM/240 ML ONE (00:30)
--- NOTE | 2024-10-17 04:03 | ER ---
Nurse's Notes [facility] Name: Kimberly Astorga Age: 59 yrs Sex: Male : 1965 Arrival Date: 10/16/2024 Time: 23:30 Bed 7 Private MD: Diagnosis: Patient's other noncompliance with medication regimen Presentation: 10/16 23:38 Chief complaint: Patient states: he thought he was taking his night time medications me1 and he took 6-8 tramadol 100mg each. Patient called poison control and was told to come to the ER. Taken at 22:45. Coronavirus screen: Vaccine status: Patient reports receiving the 2nd dose of the covid vaccine. Ebola Screen: No symptoms or risks identified at this time. Initial Sepsis Screen: Does the patient meet any 2 criteria? No. Patient's initial sepsis screen is negative. Does the patient have a suspected source of infection? No. Patient's initial sepsis screen is negative. Risk Assessment: Do you want to hurt yourself or someone else? Patient reports no desire to harm self or others. Onset of symptoms was October 16, 2024 at 22:45. 23:38 Method Of Arrival: Ambulatory me1 23:38 Acuity: LILIAM 3 me1 Historical: - Allergies: 23:40 tylenol with codeine; me1 - PMHx: 23:40 Hypertensive disorder; Diabetes mellitus; neck fracture; Osteoarthritis; me1 - PSHx: 23:40 neck surgery; me1 - Immunization history:: Adult Immunizations up to date. - Infectious Disease History:: Denies. - Social history:: Smoking status: Patient reports use of chewing tobacco. Screenin/04 00:37 [place] ED Fall Risk Assessment (Adult) History of falling in the last 3 months, bm8 including since admission No falls in past 3 months (0 pts) Confusion or Disorientation No (0 pts) Intoxicated or Sedated No (0 pts) Impaired Gait No (0 pts) Mobility Assist Device Used No (0 pt) Altered Elimination No (0 pt) Score/Fall Risk Level 0 - 2 = Low Risk Oriented to surroundings, Maintained a safe environment, Educated pt \T\ family on fall prevention, incl call for assistance when getting out of bed, Assessed \T\ reinforced patient's understanding of fall precautions, Hourly rounding (assess needs \T\ fall precautionary measures) done, Used ambulatory aids as needed (educated on \T\ assisted with), Used gait belt as appropriate. Abuse screen: Denies threats or abuse. Nutritional screening: No deficits noted. Tuberculosis screening: No symptoms or risk factors identified. Assessment: 10/16 23:54 Reassessment: Called poison control, spoke to Hayley in [place]. Case # [id number]. me1 Tramadol ingestion can cause n/v, anxiety and agitation in some people. Can lead to mild bradycardia, hypotension, respiratory depression, seizure. Recommends giving IV fluids, accident report clerk and watch patient for 8 hours. May use narcan as a last resort for respiratory depression. May give 0.5 gm plain charcoal per kilo if desired. Informed Sylvester Toscano NP. 10/17 00:37 Reassessment: Patient appears in no apparent distress at this time. Patient and/or bm8 family updated on plan of care and expected duration. Pain level reassessed. Patient is alert, oriented x 3, equal unlabored respirations, skin warm/dry/pink. General: Appears in no apparent distress. comfortable, Behavior is calm, cooperative, appropriate for age. Pain: Complains of pain in scalp and right arm Pain currently is 3 out of 10 on a pain scale. Neuro: No deficits noted. Level of Consciousness is awake, alert, obeys commands, Oriented to person, place, time, situation, Appropriate for age. Cardiovascular: Denies chest pain, Capillary refill < 3 seconds in bilateral fingers Patient's skin is warm and dry. Respiratory: Airway is patent Respiratory effort is even, unlabored, Respiratory pattern is regular, symmetrical, Breath sounds are clear bilaterally. GI: No signs and/or symptoms were reported involving the gastrointestinal system. : No signs and/or symptoms were reported regarding the genitourinary system. EENT: No signs and/or symptoms were reported regarding the EENT system. Derm: No signs and/or symptoms reported regarding the dermatologic system. Musculoskeletal: Reports pain in scalp and right arm from previous injury. 01:37 Reassessment: Patient appears in no apparent distress at this time. Patient and/or bm8 family updated on plan of care and expected duration. Pain level reassessed. Patient is alert, oriented x 3, equal unlabored respirations, skin warm/dry/pink. Patient denies pain at this time. 03:11 Reassessment: Patient appears in no apparent distress at this time. Patient and/or bm8 family updated on plan of care and expected duration. Pain level reassessed. Patient is alert, oriented x 3, equal unlabored respirations, skin warm/dry/pink. Patient denies pain at this time. Patient states feeling better. Patient states symptoms have improved. 04:15 Reassessment: Patient appears in no apparent distress at this time. Patient and/or bm8 family updated on plan of care and expected duration. Pain level reassessed. Patient is alert, oriented x 3, equal unlabored respirations, skin warm/dry/pink. pt states that he is ready to go home. Patient denies pain at this time. Patient states feeling better. Patient states symptoms have improved. Vital Signs: 10/16 23:38 BP 140 / 91; Pulse 85; Resp 18; Temp 98.1; Pulse Ox 97% ; Weight 136.08 kg; Height 5 me1 ft. 11 in. ; 10/17 00:37 BP 141 / 94; Pulse 86; Resp 18; Temp 98.1; Pulse Ox 97% on R/A; Pain 3/10; bm8 01:37 BP 131 / 77; Pulse 82; Resp 16; Temp 98.1; Pulse Ox 95% ; Pain 0/10; bm8 03:11 BP 146 / 79; Pulse 70; Resp 18; Temp 98.1; Pulse Ox 93% on R/A; Pain 0/10; bm8 04:15 BP 140 / 74; Pulse 68; Resp 19; Temp 98.1; Pulse Ox 94% ; Pain 0/10; bm8 10/16 23:38 Body Mass Index 41.84 (136.08 kg, 180.34 cm) [facility] [place] 10/17 00:37 Pain Scale: Adult bm8 01:37 Pain Scale: Adult bm8 03:11 Pain Scale: Adult bm8 04:15 Pain Scale: Adult bm8 Lyons Coma Score: 00:37 Eye Response: spontaneous(4). Motor Response: obeys commands(6). Verbal Response: bm8 oriented(5). Total: 15. 01:37 Eye Response: spontaneous(4). Motor Response: obeys commands(6). Verbal Response: bm8 oriented(5). Total: 15. 03:11 Eye Response: spontaneous(4). Motor Response: obeys commands(6). Verbal Response: bm8 oriented(5). Total: 15. 04:15 Eye Response: spontaneous(4). Motor Response: obeys commands(6). Verbal Response: bm8 oriented(5). Total: 15. ED Course: 10/16 23:33 Patient arrived in ED. jj6 23:40 Sylvester Toscano F[facility]-C [facility]. dr5 23:40 Dmitriy Bragg MD is Attending Physician. dr5 23:40 Triage completed. me1 23:40 Arm band placed on Patient placed in an exam room. me1 04 00:26 Timothy Cain, RN is Primary Nurse. bm8 00:32 Missed attempt(s): 20 gauge in left antecubital area. Bleeding controlled, band aid rv1 applied, catheter tip intact. 00:32 Missed attempt(s): 22 gauge in left forearm. Bleeding controlled, band aid applied, rv1 catheter tip intact. 00:32 Inserted saline lock: 22 gauge in left forearm, using aseptic technique. Flushed with rv1 10 mL NS. 00:37 Patient has correct armband on for positive identification. Bed in low position. Call bm8 light in reach. Side rails up X 1. Adult w/ patient. Provided Education on: post er care. Client placed on continuous cardiac and pulse oximetry monitoring. NIBP monitoring applied. checker/stocker on. Pulse ox on. NIBP on. Door closed. Noise minimized. Warm blanket given. Pillow given. Verbal reassurance given. Head of bed elevated. 00:37 No provider procedures requiring assistance completed. Patient maintains SpO2 bm8 saturation greater than 95% on room air. 03:11 PO fluids given. bm8 04:15 IV discontinued, intact, bleeding controlled, No redness/swelling at site. Pressure bm8 dressing applied. Administered Medications: 00:37 Drug: NS 0.9% IV 1000 ml IV at 1000 ml once; to be given as a bolus over 60 minutes bm8 Route: IV; Rate: 1000 ml; Site: left forearm; 04:16 Follow up: Response: No adverse reaction; IV Status: Completed infusion; IV Intake: bm8 1000ml 00:37 Drug: Actidose PO Suspension (50 g/240 mL) 0.5 g/kg PO once Route: PO; bm8 04:16 Follow up: Response: No adverse reaction bm8 Medication: 00:37 VIS not applicable for this client. bm8 Intake: 04:16 IV: 1000ml; Total: 1000ml. bm8 Outcome: 04:02 Discharge ordered by . sp3 04:15 Discharged to home ambulatory, bm8 04:15 Condition: stable 04:15 Discharge instructions given to patient, family, Instructed on discharge instructions, follow up and referral plans. no drinking with medication, no driving heavy equipment, medication usage, safety practices, Demonstrated understanding of instructions, follow-up care, medications, 04:17 Patient left the ED. bm8 Signatures: Dmitriy Bragg MD MD sp3 Nanda Santoyo Rebecca rv1 Collette Chaudhary, JAYLEN RN me1 Timothy Cain RN RN bm8 Sylvester Toscano, MEDICAL GENETICIST-C MEDICAL GENETICIST-Cdr5 Corrections: (The following items were deleted from the chart) 10/16 23:42 23:40 Allergies: No Known Allergies; me1 me1 23:42 23:40 PMHx: tylenol #3; me1 me1
--- NOTE | 2024-10-17 04:03 | EDPHYS ---
Physician Documentation [facility] Name: Kimberly Astorga Age: 59 yrs Sex: Male : 1965 Arrival Date: 10/16/2024 Time: 23:30 Bed 7 Private MD: ED Physician Dmitriy Bragg HPI: 10/16 23:59 This 59 yrs old Unknown Male presents to ER via Ambulatory with complaints of dr5 Accidental Overdose. 23:59 The patient presents to the emergency department after a known overdose, that was dr5 accidental. Context: Time: at 10:45. Patient is a 59-year-old male with history of hypertension, diabetes, neck fracture, osteoarthritis coming in with accidental overdose that occurred at 1045 this evening. Patient states he took 6-8 100 mg of Tramadol by accident. Patient denies SI / HI.. Historical: - Allergies: 23:40 tylenol with codeine; me1 - PMHx: 23:40 Hypertensive disorder; Diabetes mellitus; neck fracture; Osteoarthritis; me1 - PSHx: 23:40 neck surgery; me1 - Immunization history:: Adult Immunizations up to date. - Infectious Disease History:: Denies. - Social history:: Smoking status: Patient reports use of chewing tobacco. ROS: 10/17 00:45 Constitutional: as per hpi dr5 Exam: 00:45 Constitutional: This is a well developed, well nourished patient who is awake, alert, dr5 and in no acute distress. Head/Face: Normocephalic, atraumatic. ENT: Nares patent. No nasal discharge, no septal abnormalities noted. Tympanic membranes are normal and external auditory canals are clear. Oropharynx with no redness, swelling, or masses, exudates, or evidence of obstruction, uvula midline. Mucous membranes moist. Neck: Trachea midline, no thyromegaly or masses palpated, and no cervical lymphadenopathy. Supple, full range of motion without nuchal rigidity, or vertebral point tenderness. No Meningismus. Chest/axilla: Normal chest wall appearance and motion. Nontender with no deformity. No lesions are appreciated. Cardiovascular: Regular rate and rhythm with a normal S1 and S2. Normal PMI, no JVD. No pulse deficits. Respiratory: Lungs have equal breath sounds bilaterally, clear to auscultation. No rales, rhonchi or wheezes noted. No increased work of breathing, no retractions or nasal flaring. Back: No spinal tenderness. No costovertebral tenderness. Full range of motion. Skin: Warm, dry with normal turgor. Normal color with no rashes, no lesions, and no evidence of cellulitis. Neuro: Awake and alert, GCS 15, oriented to person, place, time, and situation. Cranial nerves II-XII grossly intact. Motor strength 5/5 in all extremities. Sensory grossly intact. Cerebellar exam normal. Normal gait. Vital Signs: 10/16 23:38 BP 140 / 91; Pulse 85; Resp 18; Temp 98.1; Pulse Ox 97% ; Weight 136.08 kg; Height 5 me1 ft. 11 in. ; 10/17 00:37 BP 141 / 94; Pulse 86; Resp 18; Temp 98.1; Pulse Ox 97% on R/A; Pain 3/10; bm8 01:37 BP 131 / 77; Pulse 82; Resp 16; Temp 98.1; Pulse Ox 95% ; Pain 0/10; bm8 03:11 BP 146 / 79; Pulse 70; Resp 18; Temp 98.1; Pulse Ox 93% on R/A; Pain 0/10; bm8 04:15 BP 140 / 74; Pulse 68; Resp 19; Temp 98.1; Pulse Ox 94% ; Pain 0/10; bm8 10/16 23:38 Body Mass Index 41.84 (136.08 kg, 180.34 cm) wy1 10/17 00:37 Pain Scale: Adult bm8 01:37 Pain Scale: Adult bm8 03:11 Pain Scale: Adult bm8 04:15 Pain Scale: Adult bm8 [place] Coma Score: 00:37 Eye Response: spontaneous(4). Motor Response: obeys commands(6). Verbal Response: bm8 oriented(5). Total: 15. 01:37 Eye Response: spontaneous(4). Motor Response: obeys commands(6). Verbal Response: bm8 oriented(5). Total: 15. 03:11 Eye Response: spontaneous(4). Motor Response: obeys commands(6). Verbal Response: bm8 oriented(5). Total: 15. 04:15 Eye Response: spontaneous(4). Motor Response: obeys commands(6). Verbal Response: bm8 oriented(5). Total: 15. MDM: 10/16 23:40 Medical Screening Exam initiated dr5 10/17 01:15 Differential diagnosis: Ingestion/exposure to Tramadol polypharmacy, over medication. dr5 Data reviewed: vital signs, nurses notes. I considered the following discharge prescriptions or medication management in the emergency department Medications were administered in the Emergency Department. See MAR. ED course: JAYLEN Murdock contacted Poison Control. Recommended Charcoal and Narcan for respiratory depression. IVF recommended. No specific labs. Recommended cardiac care nurse and monitor in ER for 8 hours.. 02:13 Historians other than the Patient: Spouse/Significant Other: . Care significantly dr5 affected by the following chronic conditions: Diabetes, Hypertension, Arthritis. Care significantly affected by the following Social Determinants of Health: Poor access to healthcare and/or lack of insurance, Poor access to transportation, Problems related to employment. Counseling: I had a detailed discussion with the patient and/or guardian regarding the historical points, exam findings, and any diagnostic results supporting the discharge/admit diagnosis, the presence of at least one elevated blood pressure reading (>120/80) during this emergency department visit, the need for outpatient follow up, for definitive care, a family practitioner, to return to the emergency department if symptoms worsen or persist or if there are any questions or concerns that arise at home. ED course: Observed patient for 8 hours in ER.. 02:14 Transition of care: After a detail discussion of the patient's case, care is dr5 transferred to Dmitriy Bragg MD. 10/17 00:01 Order name: Cardiac monitoring; Complete Time: 00:32 dr5 10/17 00:01 Order name: IV Saline Lock; Complete Time: 00:32 dr5 10/17 00:01 Order name: O2 Per Protocol; Complete Time: 00:32 dr5 10/17 00:01 Order name: O2 Sat Monitoring; Complete Time: 00:32 dr5 Administered Medications: 00:37 Drug: NS 0.9% IV 1000 ml IV at 1000 ml once; to be given as a bolus over 60 minutes bm8 Route: IV; Rate: 1000 ml; Site: left forearm; 04:16 Follow up: Response: No adverse reaction; IV Status: Completed infusion; IV Intake: bm8 1000ml 00:37 Drug: Actidose PO Suspension (50 g/240 mL) 0.5 g/kg PO once Route: PO; bm8 04:16 Follow up: Response: No adverse reaction bm8 Disposition: 04:02 I agree with the assessment and plan of care. I reviewed the patient's care provided by sp3 Advanced Practice Provider \T\ agree w/ the diagnosis \T\ care plan. I personally saw the pt \T\ performed a substantive portion of the visit, incldng all aspects of the (History/Exam/Medical Decision Making). Disposition Summary: 10/17/24 04:02 Discharge Ordered Notes: Location: Home sp3 Condition: Stable sp3 Diagnosis - Patient's other noncompliance with medication regimen sp3 Followup: dr5 - With: Emergency Department - When: As needed - Reason: Worsening of condition Followup: dr5 - With: Private Physician - When: 1 - 2 days - Reason: Recheck today's complaints, Continuance of care, Re-evaluation by your physician Discharge Instructions: - Discharge Summary Sheet dr5 - Accidental Drug Poisoning, Adult dr5 Forms: - Medication Reconciliation Form sp3 - Antibiotic Education sp3 - Prescription Opioid Use sp3 - Patient Portal Instructions sp3 - Leadership Thank You Letter sp3 Signatures: Dmitriy Bragg MD MD sp3 Collette Chaudhary, RN RN me1 Timothy Cain RN RN bm8 Sylvester Toscano, SCHOOL PROGRAM DIRECTOR-C SCHOOL PROGRAM DIRECTOR-Cdr5 Corrections: (The following items were deleted from the chart) 10/16 23:42 23:40 Allergies: No Known Allergies; me1 me1 23:42 23:40 PMHx: tylenol #3; me1 me1 10/17 00:12 00:01 EKG - Nurse/Tech ordered. dr5 dr5 00:12 00:01 Labs collected and sent ordered. dr5 dr5
[2024-10-17 04:36] VITALS: TEMP 98.1
[2024-10-17 04:46] VITALS: BP 140/74; O2SAT 94
== END 2024-10-17 04:17 | disposition home or self-care (01) ==
LOC: ER 23:30
DX: T40.421A Poisoning by tramadol, accidental (unintentional), initial encounter (principal); Z91.148 Patient's other noncompliance with medication regimen for other reason; F17.220 Nicotine dependence, chewing tobacco, uncomplicated
CPT/HCPCS: 96360; 96361; 99285; J7030